=== PATIENT | female | born 1945 | race Caucasian/White ===

== ENCOUNTER 2017-08-11 12:26 | Outpatient (CLI) | payer MEDICARE, OTHER, SELFPAY ==
[2017-08-11] VITALS (10 sets, daily range): BP systolic 105–147; BP diastolic 49–73; PULSE 51–60; RESP 18; TEMP 36.1; O2SAT 99–100
--- NOTE | 2017-08-11 12:29 | DI.RAD.S_ITS ---
PROCEDURE: PAIN L/S TRANSFORAMINAL INJECT INDICATIONS: L4/5 Radiculopathy FINDINGS: Fluoroscopic spot filming was performed to verify placement of spinal needles at the L4-5 level(s), as labeled on the films. Appropriate location(s) of the needle tip(s) was confirmed by injection of iodinated contrast. IMPRESSION: Intraoperative documentation of needle injection at the L4-5 level Dictated by: Marshall Mayo M.D. on 08/11/2017 at 14:57 Approved by: Marshall Mayo M.D. on 08/11/2017 at 14:57
--- NOTE | 2017-08-11 13:07 | P.PCN_ITS ---
Procedures Date/Time Date of procedure: 08/11/17 Time of procedure: 13:05 General Procedure description: PREOP DIAGNOSIS 1. FORMAINAL STENOSIS WITH LE SYMPTOMS POST OP DIAGNOSIS 1. FORMAINAL STENOSIS WITH LE SYMPTOMS PROCEDURES 1. FLUOROSCOPICALLY GUIDED CONTRAST CONTROLLED TRANSFORAMINAL EPIDURAL STEROID INJECTION - RIGHT L4/5 TFESI PHYSICIAN: Tyler Briones DO INDICATIONS: Shira is referred by Dr. Bahena for treatment of Foraminal Stenosis with Right LE Symptoms FINDINGS Foraminal Nerve Root Compression secondary to disc disease and facet hypertrophy DESCRIPTION OF PROCEDURE: Following denial of allergy and review of potential side effects and complications, including, but not necessarily limited to, infection, allergic reaction, local tissue breakdown, stroke, temporary or permanent nerve injury, paralysis, and possible , the patient indicated that the patient understood and agreed to proceed. An informed consent document was signed by the patient, witnessed by a nurse, and placed in the patient's chart. Additionally, other treatment options including medications, modalities, and physical therapy were reviewed with the patient. Per the patient request, IV conscious sedation was administered via 3mg of Versed to patient comfort. The patient's vital signs were monitored throughout the procedure by both the nurse and the physician without significant fluctuation. The patient remained conversant throughout the procedure. In the prone position following sterile prep and drape of the lumbar region, the Right L4/5 posterior neuroforamen was identified fluoroscopically. The skin was anesthetized via a 25-gauge 1.5-inch needle with 1% lidocaine solution. At this point, a 25-gauge 3.5-inch spinal needle was atraumatically introduced and advanced under fluoroscopic guidance through the posterior Right L4/5 neuroforamen to approximately the anterior aspect of the canal. Depth was confirmed on lateral view. Following negative aspiration, injection of approximately 1.5 cc of Isovue 200 under live fluoroscopy in the AP view confirmed excellent flow along the nerve root, into the epidural space without vascular or intrathecal uptake observed Radiological data, including multiple fluoroscopic views of the lumbosacral spine, reveal a spinal needle at the Left L4/5 posterior neuroforamen. Subsequent views show flow of contrast material flowing superiorly and inferiorly along the nerve root confirming epidural flow. Subsequently, a test dose of 1.5 cc of 1% lidocaine solution was administered and patient was observed for two minutes for signs or symptoms of complications , including abdominal pain, shortness of breath, bilateral upper or lower extremity weakness, nausea and vomiting, prior to steroid injection. At this point, a total of 3 cc or 20 mg of dexamethasone and 80mg Depo Medrol was injected without incident. The patient was then transferred to the recovery area where they were observed for an appropriate time after the injection. The patient reported a VAS score of 7 prior to the procedure and a post-procedure VAS of 0. Total Fluoroscopy Time: 20.9 seconds Total Conscious Sedation Time: 24min POST OP INSTRUCTIONS The patient was provided a Pain Log to continue to record their response to the target-specific procedure prior to follow-up visit with their referring physician. Additionally, specific post-injection care instructions and a contact number to our office were provided if concerns arise regarding possible complications associated with the procedure are suspected. Tyler Briones DO Complications: none
[2017-08-11] MEDS: MIDAZOLAM 5 MG/5 ML VIAL IV (13:08)
[2017-08-11] MEDS: BUPIVACAINE 0.25% (PF) 30 ML VIAL INJ (13:17)
[2017-08-11] MEDS: IOPAMIDOL 15 ML VIAL 3 ML INJ (13:17)
[2017-08-11] MEDS: methylPREDNISolone acetate 80 MG/ML VIAL INJ (13:17)
[2017-08-11] MEDS: DEXAMETHASONE 10 MG/ML VIAL 20 MG INJ (13:17)
== END 2017-08-11 13:57 | disposition home or self-care (01) ==
LOC: RAD 12:28
PROVIDERS: PCP Family Medicine; Referring Provider Family Medicine; Visit Provider Physical Medicine & Rehabilitation
DX: M54.16 Radiculopathy, lumbar region (principal); M99.73 Connective tissue and disc stenosis of intervertebral foramina of lumbar region
CPT/HCPCS: 64483; 99152; J1040; J1100; J2250

== ENCOUNTER 2017-08-31 07:26 | Outpatient (CLI) | payer MEDICARE, OTHER, SELFPAY ==
[2017-08-31] VITALS (7 sets, daily range): BP systolic 104–166; BP diastolic 45–77; PULSE 46–54; RESP 11–18; TEMP 36.1; O2SAT 100
--- NOTE | 2017-08-31 07:27 | DI.RAD.S_ITS ---
PROCEDURE: PAIN L/SI FACET INJ/BLK 1STL INDICATIONS: facet arthropathy with spondylosis FINDINGS: Fluoroscopic spot filming was performed to verify placement of spinal needles at the right L4-5 facet region, as labeled on the films. Appropriate location(s) of the needle tip(s) was confirmed by injection of iodinated contrast. IMPRESSION: Right L4-5 facet needle localization, presumably for steroid injection. Dictated by: Kyle Engel M.D. on 08/31/2017 at 9:33 Approved by: Kyle Engel M.D. on 08/31/2017 at 9:34
--- NOTE | 2017-08-31 08:09 | P.PCN_ITS ---
Procedures Date/Time Date of procedure: 08/31/17 Time of procedure: 08:44 General Procedure description: PREOP DIAGNOSIS 1. FACET ARTHROPATHY, 2. AXIAL LBP, 3. MULTILEVEL DDD, POST OP DIAGNOSIS 1. FACET ARTHROPATHY, 2. AXIAL LBP, 3. MULTILEVEL DDD, PROCEDURES 1. FLUORSCOPICALLY GUIDED CONTRAST CONTROLLED FACET JOINT INJECTIONS RIGHT L4/5 , L5/S1 PHYSICIAN: DO ELHAM Smith Shira is referred by Dr. Bahena for treatment of Axial LBP FINDINGS Multilevel Facet Arthropathy with Clinically significant axial LBP DESCRIPTION OF PROCEDURE Fluoroscopically guided, contrast-controlled right L4/5, L5/S1 facet joint injections. Following denial of allergy and review of potential side effects and complications, including, but not necessarily limited to, infection, allergic reaction, local tissue breakdown, stroke, temporary or permanent nerve injury, paralysis, and possible , the patient indicated that the patient understood and agreed to proceed. An informed consent document was signed by the patient, witnessed by a nurse, and placed in the patient's chart. Additionally, other treatment options including medications, modalities, and physical therapy were reviewed with the patient. Per the patient request, IV conscious sedation was administered via 2mg of Versed to patient comfort. The patient's vital signs were monitored throughout the procedure by both the nurse and the physician without significant fluctuation. The patient remained conversant throughout the procedure. In the prone position, following sterile prep and drape of the lumbar region, the posterior aspect of the right L4/5, L5/S1 facet joints were identified fluoroscopically. The skin was anesthetized via a 25-gauge 1.5-inch needle with 1% lidocaine solution into the corresponding facet joints. At this point, a 22-gauge 3.5-inch spinal needle was atraumatically introduced and advanced under fluoroscopic guidance into the corresponding facet joints. Following negative aspiration, injections of approximately 0.2-cc of Isovue 200 confirmed interarticular placement without vascular uptake. Radiological data, including multiple fluoroscopic views of the lumbosacral spine, reveal a spinal needle at the right L4/5, L5/S1 facet joints. Subsequent views show flow of contrast material both superiorly and inferiorly within the joint space without vascular or intrathecal uptake. At this point, a total of 0.5 cc including a mixture of 0.25 cc Marcaine and 0.25 cc betamethasone was injected without complication into each of the corresponding facet joints. The patient was then transferred to the recovery area where they were observed for an appropriate period of time after the injection. The patient reported a VAS score of 7 prior to the procedure and a post-procedure VAS of 0. Total Fluoroscopy Time: 12.7 seconds Total Conscious Sedation Time: 24min POST OP INSTRUCTIONS The patient was provided a Pain Log to continue to record their response to the target-specific procedure prior to follow-up visit with their referring physician. Additionally, specific post-injection care instructions and a contact number to our office were provided if concerns arise regarding possible complications associated with the procedure are suspected Complications: none
[2017-08-31] MEDS: BETAMETHASONE 30 MG/5 ML MDV 12 MG INJ (08:25)
[2017-08-31] MEDS: LIDOCAINE 1% 20 ML INJ 10 ML INJ (08:25)
[2017-08-31] MEDS: MIDAZOLAM 5 MG/5 ML VIAL IV (08:25)
[2017-08-31] MEDS: IOPAMIDOL 15 ML VIAL 3 ML INJ (08:25)
[2017-08-31] MEDS: BUPIVACAINE 0.5% (PF) 30 ML VIAL INJ (08:25)
== END 2017-08-31 09:07 | disposition home or self-care (01) ==
LOC: RAD 07:27
PROVIDERS: PCP Family Medicine; Visit Provider Physical Medicine & Rehabilitation
DX: M47.816 Spondylosis without myelopathy or radiculopathy, lumbar region (principal); M41.20 Other idiopathic scoliosis, site unspecified; M43.16 Spondylolisthesis, lumbar region
CPT/HCPCS: 64493; 99152; J0702; J2250; J3010

== ENCOUNTER 2018-03-16 10:25 | Outpatient (CLI) | payer MEDICARE, OTHER, SELFPAY ==
[2018-03-16] VITALS (8 sets, daily range): BP systolic 102–147; BP diastolic 41–65; PULSE 45–56; RESP 16–18; TEMP 36.1; O2SAT 99–100
--- NOTE | 2018-03-16 10:27 | DI.RAD.S_ITS ---
PROCEDURE: PAIN L/SI FACET INJ/BLK 1STL INDICATIONS: SPONDYLOSIS FINDINGS: Fluoroscopic spot filming was performed to verify placement of spinal needles at the right L4, L5, and S1 medial branch level(s), as labeled on the films. Appropriate location(s) of the needle tip(s) was confirmed by injection of iodinated contrast. IMPRESSION: Successful needle localization for medial branch block procedures on the right at L4, L5 and S1. Dictated by: Kyle Engel M.D. on 03/16/2018 at 15:18 Approved by: Kyle Engel M.D. on 03/16/2018 at 15:38
--- NOTE | 2018-03-16 10:41 | PM.PROC.1 ---
Procedures Date/Time Date of procedure: 03/16/18 Time of procedure: 10:41 General Procedure description: POST OP DIAGNOSIS 1. FACET ARTHROPATHY PROCEDURES 1. Right L4, L5 and S1 MB BLOCKS PHYSICIAN: DO ELHAM Smith Shira is referred by Dr. Bahena for treatment of Right Axial LBP. DESCRIPTION OF PROCEDURE Fluoroscopically guided, contrast-controlled right L4, L5 and S1 medial branch blocks with 0.5cc of 0.5% Marcaine. Following denial of allergy and review of potential side effects and complications, including, but not necessarily limited to, infection, allergic reaction, local tissue breakdown, nerve injury, paralysis, stroke and possible , the patient indicated that the patient understood and agreed to proceed. An informed consent document was signed by the patient, witnessed by a nurse, and placed in the patient's chart. After review of previous anaesthesic history and IV conscious sedation the patient was deemed safe to proceed with todays procedure with IV conscious sedation as ASA class II designation. Safety time-out was performed to confirm patient ID, procedure to be performed and site of procedure. IV sedation was accomplished with a combination of 3mg was administered by the RN after DO order, titrated to patient comfort during the course of the procedure while the patient remained responsive to all verbal commands In the prone position, following sterile prep and drape of the lumbar region, the right L4, L5 and S1 anatomical location of the medial branch of the dorsal ramus was identified fluoroscopically. Subsequently an anesthetic skin wheal using 1% lidocaine solution was initiated at each of the anatomical spots. Subsequently then a 22-gauge 3.5-inch spinal needle was atraumatically introduced and advanced under fluoroscopic guidance at each of the corresponding sites at the right L4, L5 and S1 MB. After negative aspiration, 0.2 cc of Isovue 200 was injected, confirming placement without vascular or intrathecal uptake. Subsequently then 0.5 cc of 0.5% Marcaine solution was injected at each of the corresponding sites at the right L4, L5 and S1 medial branch locations. The patient tolerated the procedure well without signs or symptoms of complications. The procedure tolerated the procedure well without signs or symptoms of complications prior to transfer to the recovery area continued monitoring without incident. Post-procedure, the patient was monitored initiating provocative activities to measure the amount of relief from block of the facetogenic pain. The patient reported a VAS of 7 prior to the procedure and a post-procedure VAS of 1. It has been a pleasure to assist in the diagnostic and therapeutic care of your patient. Total Fluoroscopy Time: 24.8 seconds Total Conscious Sedation Time: 24min POST OP INSTRUCTIONS The patient was provided with a Pain Log to complete over the next several hours and subsequent days prior to the patient's follow up with the ordering physician. If the patient has combat information center officer relief to the solution applied, then they may be a candidate for medial branch rhizotomy. The patient is aware, was provided, once again, with a Pain Log and will follow up with the referring physician for review and clinical correlation Tyler Briones DO Complications: none
--- NOTE | 2018-03-16 10:44 | P.PCN_ITS ---
Procedures Date/Time Date of procedure: 03/16/18 Time of procedure: 10:41 General Procedure description: POST OP DIAGNOSIS 1. FACET ARTHROPATHY PROCEDURES 1. Right L4, L5 and S1 MB BLOCKS PHYSICIAN: DO ELHAM Smith Shira is referred by Dr. Bahena for treatment of Right Axial LBP. DESCRIPTION OF PROCEDURE Fluoroscopically guided, contrast-controlled right L4, L5 and S1 medial branch blocks with 0.5cc of 0.5% Marcaine. Following denial of allergy and review of potential side effects and complications, including, but not necessarily limited to, infection, allergic reaction, local tissue breakdown, nerve injury, paralysis, stroke and possible , the patient indicated that the patient understood and agreed to proceed. An informed consent document was signed by the patient, witnessed by a nurse, and placed in the patient's chart. After review of previous anaesthesic history and IV conscious sedation the patient was deemed safe to proceed with todays procedure with IV conscious sedation as ASA class II designation. Safety time-out was performed to confirm patient ID, procedure to be performed and site of procedure. IV sedation was accomplished with a combination of 3mg was administered by the RN after DO order , titrated to patient comfort during the course of the procedure while the patient remained responsive to all verbal commands In the prone position, following sterile prep and drape of the lumbar region, the right L4, L5 and S1 anatomical location of the medial branch of the dorsal ramus was identified fluoroscopically. Subsequently an anesthetic skin wheal using 1% lidocaine solution was initiated at each of the anatomical spots. Subsequently then a 22-gauge 3.5-inch spinal needle was atraumatically introduced and advanced under fluoroscopic guidance at each of the corresponding sites at the right L4, L5 and S1 MB. After negative aspiration, 0.2 cc of Isovue 200 was injected, confirming placement without vascular or intrathecal uptake. Subsequently then 0.5 cc of 0.5% Marcaine solution was injected at each of the corresponding sites at the right L4, L5 and S1 medial branch locations. The patient tolerated the procedure well without signs or symptoms of complications. The procedure tolerated the procedure well without signs or symptoms of complications prior to transfer to the recovery area continued monitoring without incident. Post-procedure, the patient was monitored initiating provocative activities to measure the amount of relief from block of the facetogenic pain. The patient reported a VAS of 7 prior to the procedure and a post-procedure VAS of 1. It has been a pleasure to assist in the diagnostic and therapeutic care of your patient. Total Fluoroscopy Time: 24.8 seconds Total Conscious Sedation Time: 24min POST OP INSTRUCTIONS The patient was provided with a Pain Log to complete over the next several hours and subsequent days prior to the patient's follow up with the ordering physician. If the patient has nanny babysitter relief to the solution applied, then they may be a candidate for medial branch rhizotomy. The patient is aware , was provided, once again, with a Pain Log and will follow up with the referring physician for review and clinical correlation Tyler Briones DO Complications: none
[2018-03-16] MEDS: MIDAZOLAM 5 MG/5 ML VIAL IV (11:00)
[2018-03-16] MEDS: BUPIVACAINE 0.5% (PF) VIAL 2 ML INJ (11:07)
[2018-03-16] MEDS: IOPAMIDOL 15 ML VIAL 3 ML INJ (11:07)
[2018-03-16] MEDS: LIDOCAINE 1% 20 ML INJ 10 ML INJ (11:08)
[2018-03-16] MEDS: BETAMETHASONE 30 MG/5 ML MDV 12 MG INJ (11:08)
--- NOTE | 2018-03-16 11:08 | PC.NURSE ---
ASSISTING PT OFF TABLE AND TRANSPORTING TO POST PROC AREA IN STABLE CONDITION
--- NOTE | 2018-03-16 11:51 | PC.NURSE ---
Received pt from post procedure, pt alert and able to move from W/C to Chair with standby assist. REsumed monitoring.
== END 2018-03-16 11:42 ==
LOC: RAD 10:27
PROVIDERS: PCP Family Medicine; Visit Provider Physical Medicine & Rehabilitation
DX: M47.817 Spondylosis without myelopathy or radiculopathy, lumbosacral region (principal); M47.816 Spondylosis without myelopathy or radiculopathy, lumbar region
CPT/HCPCS: 64493; 64494; 99152; J0702; J2250

== ENCOUNTER 2018-07-19 10:52 | Outpatient (CLI) | payer MEDICARE, OTHER, SELFPAY ==
[2018-07-19] VITALS (7 sets, daily range): BP systolic 110–144; BP diastolic 48–70; PULSE 46–64; RESP 16–18; TEMP 36.4; O2SAT 98–100
--- NOTE | 2018-07-19 10:54 | DI.RAD.S_ITS ---
PROCEDURE: PAIN SI JOINT INJECTION INDICATIONS: SACROCOCCGEAL DISORDER FINDINGS: Fluoroscopic spot filming was performed to verify placement of spinal needle at the right sacroiliac joint , as labeled on the films. Appropriate location(s) of the needle tip(s) was confirmed by injection of iodinated contrast. Dictated by: Bill Bowman M.D. on 07/20/2018 at 9:55 Approved by: Bill Bowman M.D. on 07/20/2018 at 9:56
[2018-07-19] MEDS: MIDAZOLAM 5 MG/5 ML VIAL IV (11:55)
--- NOTE | 2018-07-19 12:01 | PM.PROC.1 ---
Procedures Date/Time Date of procedure: 07/19/18 Time of procedure: 12:01 General Procedure description: PREOP Dx: Sacroiliac joint pain/DJD POST OP DX: Sacroiliac Joint Pain/DJD Procedures: Fluoroscopic guided contrast controlled right sacroiliac joint injection Physician: Tyler Briones D.O. Indications: Shira is referred by for treatment of right sacroiliac joint DJD Description of procedure Fluoroscopic guided, contrast controlled right sacroiliac joint injection Following denial of allergies and review of potential side effects and complications, including, but not necessarily limited to, infection, allergic reaction, local tissue breakdown, temporary as well as permanent nerve injury, paralysis, stroke and possible , the patient indicated that they understood and agreed to proceed. An informed consent was signed by the patient, witnessed by a nurse, and placed in the patient's chart. Additionally, other treatment options including modalities, medications, and physical therapy were reviewed with the patient. After review of previous anaesthesic history and IV conscious sedation the patient was deemed safe to proceed with todays procedure with IV conscious sedation as ASA class II designation. Safety time-out was performed to confirm patient ID, procedure to be performed and site of procedure. IV sedation was accomplished with 3mg of Versed was administered by the RN after DO order, titrated to patient comfort during the course of the procedure while the patient remained responsive to all verbal commands In the prone position following sterile prep and drape of the pelvic region, the hyper lucency on in the inferior aspect of the sacroiliac joint was identified fluoroscopically the skin was anesthetized be a 25 gauge 1 eventual with approximately 2 cc of 1% lidocaine solution. At this point, a 22 gauge 3 in spinal needle was atraumatically introduced and advanced under fluoroscopic guidance into the inferior aspect of the right sacroiliac joint. Following negative aspiration, approximately 0.3 cc of Isovue-300 was injected confirming intra-articular placement without vascular uptake. Radiographic data, including multiple fluoroscopic views of the pelvis, reveals a spinal needle in the sacroiliac joint hyper lucent zone. Subsequent view show flow contrast tear superiorly and inferiorly within the joint capsule without vascular intrathecal uptake. At this point a total of 1 cc or 0 8 of 0.5% Marcaine was combined with 1 cc of 6 mg of betamethasone was injected without incident. The procedure tolerated the procedure well without signs or symptoms of complications prior to transfer to the recovery area continued monitoring without incident. The patient was then transferred to the recovery area with a bur observed for an appropriate time after the injection. The patient reverted a vas score of 7 prior to the procedure and postprocedure vas of 1. Total fluoroscopy time: 22.7 sec Total conscious sedation time: 24 min Postop instructions The patient was provided with a pain like to continue to record the patient's response to the target specific procedure prior to the patient's follow-up visit with the referring physician. Additionally, specific post injection care instructions and a contact number to our office were provided if concerns arise regarding the possible complications associated with procedure are suspected. Tyler Briones D.O. Complications: none
--- NOTE | 2018-07-19 12:10 | PC.NURSE ---
pt tolerated procedure well. Able to get off table with standby assist. Transferred pt to pre procedure room via wheelchair for continued monitoring with Dolores INGRAM.
[2018-07-19] MEDS: IOPAMIDOL 15 ML VIAL 3 ML INJ (12:12)
[2018-07-19] MEDS: BETAMETHASONE 30 MG/5 ML MDV 12 MG INJ (12:12)
[2018-07-19] MEDS: BUPIVACAINE 0.5% (PF) VIAL 2 ML INJ (12:12)
== END 2018-07-19 12:31 | disposition home or self-care (01) ==
LOC: RAD 10:53
PROVIDERS: PCP Family Medicine; Visit Provider Physical Medicine & Rehabilitation
DX: M53.3 Sacrococcygeal disorders, not elsewhere classified (principal); M47.818 Spondylosis without myelopathy or radiculopathy, sacral and sacrococcygeal region
CPT/HCPCS: 27096; 99152; J0702; J2250; J3010

== ENCOUNTER → 2019-07-31 11:22 | Outpatient (CLI) | payer MEDICARE, OTHER, SELFPAY ==
--- NOTE | 2019-07-31 11:24 | DI.RAD.S_ITS ---
PROCEDURE: XR LUMBAR SPINE MIN 4V INDICATIONS: LOW BACK PAIN TECHNIQUE: 5 total views of the lumbar spine were acquired, including bilateral oblique views. COMPARISON: None. FINDINGS: Bones: There is moderate levoconvex lumbar scoliosis. Grade 1 anterolisthesis is seen at the L4-L5 level. No displaced fractures are seen. 5 nonrib-bearing, lumbar type vertebral bodies are seen. No suspicious lytic or blastic lesions are seen. There is calcification seen along the L1-L2 and L2-L3 disc levels. There is moderate to severe disc space narrowing seen at L2-L3 and at L5-S1. Moderate disc space narrowing is seen at L4-L5. Lower lumbar spine facet arthropathy is seen. Note is made of osteitis pubis, which is not considered to be frankly abnormal in a woman of this age. Soft tissues: Overlying bowel gas pattern is normal. There is a 5 cm rim calcified focus seen involving the left upper quadrant of the abdomen. Oblique images: No pars defects. IMPRESSION: Moderate levoconvex scoliosis is seen, with multiple levels of degenerative change. The degenerative changes are most prominent inferiorly. 5 cm rim calcified left upper quadrant focus seen, which is likely related to a chronic splenic lesion. Grade 1 L4-L5 anterolisthesis, without associated pars defects identified. Dictated by: Yunior Pratt M.D. on 07/31/2019 at 11:22 Approved by: Yunior Pratt M.D. on 07/31/2019 at 11:25
== END ==
PROVIDERS: PCP Family Medicine; Referring Provider Physical Medicine & Rehabilitation; Visit Provider Physical Medicine & Rehabilitation
DX: M54.5 Low back pain (principal); M43.16 Spondylolisthesis, lumbar region; M41.86 Other forms of scoliosis, lumbar region; M47.816 Spondylosis without myelopathy or radiculopathy, lumbar region; M48.062 Spinal stenosis, lumbar region with neurogenic claudication; M53.3 Sacrococcygeal disorders, not elsewhere classified; M70.61 Trochanteric bursitis, right hip
CPT/HCPCS: 72110; 99213

== ENCOUNTER → 2019-08-09 10:59 | Outpatient (CLI) | payer MEDICARE, OTHER, SELFPAY ==
--- NOTE | 2019-08-09 11:00 | DI.MRI.S_ITS ---
PROCEDURE: MR LUMBAR SPINE WO CON INDICATIONS: LBP with Right LE TECHNIQUE: Noncontrast sagittal T1 spin echo and T2 fast echo, coronal T2, sagittal STIR, axial T1 and T2 fast spin echo through the lumbar spine. COMPARISON: [facility], MR, MR LUMBAR SPINE WO CON, 09/21/2016, 16:25. [facility], CR, XR LUMBAR SPINE MIN 4V, 07/31/2019, 11:21. FINDINGS: Image quality: Excellent. Alignment and Curvature: There are 5 lumbar-type vertebral bodies by plain film. Moderate leftward curvature of the mid/upper lumbar spine is present. There is mild, grade 1 retrolisthesis of T12 on L1. Mild grade 1 anterolisthesis of L2 on L3, L3 on L4, and L4 on L5. Bone Marrow: Marrow is of normal overall signal. No acute vertebral body compression fractures. Mild reactive signal within the endplates adjacent to the T10-T11, T11-T12, T12-L1, L1-L2, L2-L3, L3-L4, L4-L5, and L5-S1 intervertebral discs. Spinal Cord: Conus medullaris terminates at the mid L1 level. Visualized cord demonstrates normal signal and size. Paraspinous Soft Tissues: No paravertebral masses. There is an exophytic peripherally calcified cyst involving the superior pole left kidney, as before, currently measuring 50 mm diameter. L1-L2: Moderate disc desiccation. Mild diffuse disc bulge. Mild facet and ligament flavum hypertrophy. Mild epidural lipomatosis. Mild canal stenosis. No foraminal stenosis. No change. L2-L3: Mild disc height loss. Moderate disc desiccation. Mild diffuse disc bulge with superimposed left far lateral broad-based protrusion. Mild facet and ligamentum flavum hypertrophy. Mild epidural lipomatosis. Mild canal stenosis. Mild left foraminal stenosis. No right foraminal stenosis. No change. L3-L4: Moderate disc height loss and desiccation. Mild diffuse disc bulge. Bilateral facet and ligamentum flavum hypertrophy. Severe canal stenosis. Mild bilateral foraminal stenosis. No change. L4-L5: Moderate disc desiccation. Mild diffuse disc bulge. Moderate facet hypertrophy bilaterally. Mild ligamentum flavum hypertrophy. Mild epidural lipomatosis. Moderate canal stenosis. Mild bilateral foraminal stenosis. No change. L5-S1: Moderate disc desiccation. Mild diffuse disc bulge. Mild bilateral facet hypertrophy. Mild canal stenosis. Mild bilateral foraminal stenosis. No change. IMPRESSION: 1. Multilevel degenerative disc and facet disease, as well as ligamentum flavum hypertrophy and epidural lipomatosis. 2. Multilevel canal stenoses, worst at L3-L4, where there is severe canal stenosis. 3. Mild multilevel foraminal stenoses. Dictated by: Silvio Hawthorne M.D. on 08/09/2019 at 13:38 Approved by: Silvio Hawthorne M.D. on 08/09/2019 at 13:49
== END ==
PROVIDERS: PCP Family Medicine; Referring Provider Physical Medicine & Rehabilitation; Visit Provider Physical Medicine & Rehabilitation
DX: M54.5 Low back pain (principal); M51.37 Other intervertebral disc degeneration, lumbosacral region; M51.36 Other intervertebral disc degeneration, lumbar region; M48.061 Spinal stenosis, lumbar region without neurogenic claudication; M48.07 Spinal stenosis, lumbosacral region; M43.16 Spondylolisthesis, lumbar region; M41.20 Other idiopathic scoliosis, site unspecified; E88.2 Lipomatosis, not elsewhere classified
CPT/HCPCS: 72148

== ENCOUNTER → 2019-09-11 10:04 | Outpatient (CLI) | payer MEDICARE, OTHER, SELFPAY ==
[2019-09-12 08:31] LABS: COVID19 Sendout Not Detected (Not Detect)
== END ==
PROVIDERS: PCP Family Medicine; Visit Provider Physician Assistant
DX: Z01.812 Encounter for preprocedural laboratory examination (principal)
CPT/HCPCS: 87635

== ENCOUNTER 2019-09-14 08:41 | Outpatient (CLI) | payer MEDICARE, OTHER, SELFPAY ==
[2019-09-14] VITALS (9 sets, daily range): BP systolic 114–175; BP diastolic 46–82; PULSE 41–55; RESP 14–167; TEMP 36.2; O2SAT 100
--- NOTE | 2019-09-14 08:44 | DI.RAD.S_ITS ---
PROCEDURE: PAIN L/S TRANSFORAMINAL INJECT INDICATIONS: SPONDYLOSIS FINDINGS: Fluoroscopic spot filming was performed to verify placement of spinal needles at the L3-L4 level(s), as labeled on the films. Appropriate location(s) of the needle tip(s) was confirmed by injection of iodinated contrast. Dictated by: Bill Bowman M.D. on 09/14/2019 at 11:54 Approved by: Bill Bowman M.D. on 09/14/2019 at 11:55
--- NOTE | 2019-09-14 09:33 | PC.NURSE ---
admitted to pre procedure room, LS CTA, HRR, VSS.
--- NOTE | 2019-09-14 09:59 | DI.RAD.S_ITS ---
PROCEDURE: PAIN SI JOINT INJECTION INDICATIONS: SPINAL STENOSIS FINDINGS: Fluoroscopic spot filming was performed to verify placement of spinal needles at the right sacroiliac joint , as labeled on the films. Appropriate location(s) of the needle tip(s) was confirmed by injection of iodinated contrast. Dictated by: Bill Bowman M.D. on 09/14/2019 at 11:55 Approved by: Bill Bowman M.D. on 09/14/2019 at 12:43
[2019-09-14] MEDS: MIDAZOLAM 5 MG/5 ML VIAL IV (10:10)
[2019-09-14] MEDS: BUPIVACAINE 0.25% (PF) VIAL 5 ML INJ (10:14)
[2019-09-14] MEDS: fentaNYL 100 MCG/2 ML INJ 50 MCG IV (10:14)
[2019-09-14] MEDS: IOPAMIDOL 15 ML VIAL 3 ML INJ (10:14)
[2019-09-14] MEDS: DEXAMETHASONE 10 MG/ML VIAL 20 MG INJ (10:15)
[2019-09-14] MEDS: BETAMETHASONE 30 MG/5 ML MDV 12 MG INJ (10:15)
--- NOTE | 2019-09-14 10:32 | P.PCN_ITS ---
Procedures Date/Time Date of procedure: 09/14/19 Time of procedure: 10:32 General Procedure description: PROVIDER: Tyler Briones DO Operative Note PREOP DIAGNOSIS 1. FORAMINAL STENOSIS WITH LE SYMPTOMS, POST OP DIAGNOSIS 1. FORAMINAL STENOSIS WITH LE SYMPTOMS, PROCEDURES 1. FLUOROSCOPICALLY GUIDED CONTRAST CONTROLLED TRANSFORAMINAL EPIDURAL STEROID INJECTION - RIGHT L3/4 TFESI SURGEON: Tyler Briones, INDICATIONS Shira is referred by Dr. Bahena for treatment of Foraminal Stenosis with right LE Symptoms FINDINGS Foraminal Nerve Root Compression secondary to disc disease and facet hypertrophy DESCRIPTION OF PROCEDURE Following review of allergy and review of potential side effects and complications, including, but not necessarily limited to, infection, allergic reaction, local tissue breakdown, stroke, temporary or permanent nerve injury, paralysis, and possible , the patient indicated that the patient understood and agreed to proceed. An informed consent document was signed by the patient, witnessed by a nurse, and placed in the patient's chart. Additionally, other treatment options including medications, modalities, and physical therapy were reviewed with the patient. After review of previous anaesthesic history and IV conscious sedation the patient was deemed safe to proceed with todays procedure with IV conscious sedation as ASA class II designation. Safety time-out was performed to confirm patient ID, procedure to be performed and site of procedure. IV sedation was accomplished with a combination of 2mg of Versed and 50mcg of Fentanyl was administered by the RN after DO order, titrated to patient comfort during the course of the procedure while the patient remained responsive to all verbal commands In the prone position following sterile prep and drape of the lumbar region, the right L3/4 posterior neuroforamen was identified fluoroscopically. The skin was anesthetized via a 25-gauge 1.5-inch needle with 1% lidocaine solution. At this point, a 25-gauge 3.5-inch spinal needle was atraumatically introduced and advanced under fluoroscopic guidance through the posterior right L3/4 neuroforamen to approximately the anterior aspect of the canal. Depth was confirmed on lateral view. Following negative aspiration, injection of approximately 1.5 cc of Isovue 200 under live fluoroscopy in the AP view confirmed excellent flow along the nerve root, into the epidural space without vascular or intrathecal uptake observed Radiological data, including multiple fluoroscopic views of the lumbosacral spine, reveal a spinal needle at the right L3/4 posterior neuroforamen. Subsequ ent views show flow of contrast material flowing superiorly and inferiorly along the nerve root confirming epidural flow. Subsequently, a test dose of 1.5 cc of 1% lidocaine solution was administered and patient was observed for two minutes for signs or symptoms of complications, including abdominal pain, shortness of breath, bilateral upper or lower extremity weakness, nausea and vomiting, prior to steroid injection. At this point, a total of 3cc or 20mg of dexamethasone and 6mg of betamethasone was injected without incident. The patient tolerated the procedure well without signs or symptoms of complications prior to transfer to the recovery area continued monitoring without incident. The patient was then transferred to the recovery area where they were observed for an appropriate time after the injection. The patient reported a VAS score of 6 prior to the procedure and a post-procedure VAS of 0. Total Fluoroscopy Time: 9seconds Total Conscious Sedation Time: 24min POST OP INSTRUCTIONS The patient was provided a Pain Log to continue to record their response to the target-specific procedure prior to follow-up visit with their referring physician. Additionally, specific post-injection care instructions and a contact number to our office were provided if concerns arise regarding possible complications associated with the procedure are suspected. Tyler Briones, Complications: none
--- NOTE | 2019-09-14 10:33 | PM.PROC.1 ---
Procedures Date/Time Date of procedure: 09/14/19 Time of procedure: 10:33 General Procedure description: PREOP Dx: Sacroiliac joint pain/DJD POST OP DX: Sacroiliac Joint Pain/DJD Procedures: Fluoroscopic guided contrast controlled right sacroiliac joint injection Physician: Tyler Briones D.O. Indications: Shira is referred by for treatment of right sacroiliac joint DJD Description of procedure Fluoroscopic guided, contrast controlled right sacroiliac joint injection Following review of allergies and review of potential side effects and complications, including, but not necessarily limited to, infection, allergic reaction, local tissue breakdown, temporary as well as permanent nerve injury, paralysis, stroke and possible , the patient indicated that they understood and agreed to proceed. An informed consent was signed by the patient, witnessed by a nurse, and placed in the patient's chart. Additionally, other treatment options including modalities, medications, and physical therapy were reviewed with the patient. After review of previous anaesthesic history and IV conscious sedation the patient was deemed safe to proceed with todays procedure with IV conscious sedation as ASA class II designation. Safety time-out was performed to confirm patient ID, procedure to be performed and site of procedure. IV sedation was accomplished with a combination of 2mg of Versed and 50mcg of Fentanyl was administered by the RN after DO order, titrated to patient comfort during the course of the procedure while the patient remained responsive to all verbal commands In the prone position following sterile prep and drape of the pelvic region, the hyper lucency on in the inferior aspect of the sacroiliac joint was identified fluoroscopically the skin was anesthetized be a 25 gauge 1 eventual with approximately 2 cc of 1% lidocaine solution. At this point, a 22 gauge 3 in spinal needle was atraumatically introduced and advanced under fluoroscopic guidance into the inferior aspect of the right sacroiliac joint. Following negative aspiration, approximately 0.3 cc of Isovue-300 was injected confirming intra-articular placement without vascular uptake. Radiographic data, including multiple fluoroscopic views of the pelvis, reveals a spinal needle in the sacroiliac joint hyper lucent zone. Subsequent view show flow contrast tear superiorly and inferiorly within the joint capsule without vascular intrathecal uptake. At this point a total of 1cc or of 0.5% Marcaine was combined with 1cc of 6 mg of betamethasone was injected without incident. The procedure tolerated the procedure well without signs or symptoms of complications prior to transfer to the recovery area continued monitoring without incident. The patient was then transferred to the recovery area with a bur observed for an appropriate time after the injection. The patient reverted a vas score of 7 prior to the procedure and postprocedure vas of 1. Total fluoroscopy time: 7 sec Total conscious sedation time: 24 min Postop instructions The patient was provided with a pain like to continue to record the patient's response to the target specific procedure prior to the patient's follow-up visit with the referring physician. Additionally, specific post injection care instructions and a contact number to our office were provided if concerns arise regarding the possible complications associated with procedure are suspected. Tyler Briones D.O. Complications: none
--- NOTE | 2019-09-14 11:23 | PC.NURSE ---
pt returned to pre proc room via wc, stable transfer from wc to chair with minimal assistance, monitoring resumed by this rn
== END 2019-09-14 11:13 | disposition home or self-care (01) ==
LOC: RAD 08:42
PROVIDERS: PCP Family Medicine; Referring Provider Physical Medicine & Rehabilitation; Visit Provider Physical Medicine & Rehabilitation
DX: M48.061 Spinal stenosis, lumbar region without neurogenic claudication (principal); M51.16 Intervertebral disc disorders with radiculopathy, lumbar region; M53.3 Sacrococcygeal disorders, not elsewhere classified; M47.898 Other spondylosis, sacral and sacrococcygeal region
CPT/HCPCS: 27096; 64483; 99152; 99153; J0702; J1100; J2250; J3010

== ENCOUNTER → 2019-09-21 10:48 | Outpatient (CLI) | payer MEDICARE, OTHER, SELFPAY ==
--- NOTE | 2019-09-21 13:26 | DI.US.S_ITS ---
PROCEDURE: US PERIPH VENOUS LOW EXTREM LT INDICATIONS: LEFT CALF NUMBNESS TECHNIQUE: Real-time imaging, as well as color and pulse Doppler interrogation, were performed of the lower extremity deep veins from the inguinal ligament to the popliteal fossa. COMPARISON: None. FINDINGS: The common femoral, femoral and popliteal veins are normally compressible, and free of intraluminal thrombus. Color and pulse Doppler demonstrate normal phasic intraluminal flow. There is normal augmentation response to distal compression maneuver. IMPRESSION: No evidence of DVT in visualized left lower extremity veins. Dictated by: Jim Sofia M.D. on 09/21/2019 at 13:31 Approved by: Jim Sofia M.D. on 09/21/2019 at 13:32
== END ==
PROVIDERS: PCP Family Medicine; Referring Provider Physical Medicine & Rehabilitation; Visit Provider Physical Medicine & Rehabilitation
DX: R60.0 Localized edema (principal); R20.0 Anesthesia of skin
CPT/HCPCS: 93971

== ENCOUNTER → 2020-09-09 10:52 | Outpatient (CLI) | payer MEDICARE, OTHER, SELFPAY ==
[2020-09-09 15:46] LABS: COVID19 -Nasal RAPID Negative (Negative)
== END ==
PROVIDERS: PCP Family Medicine; Referring Provider Physical Medicine & Rehabilitation; Visit Provider Physical Medicine & Rehabilitation
DX: Z20.822 Contact with and (suspected) exposure to COVID-19 (principal)
CPT/HCPCS: 87635; C9803

== ENCOUNTER 2020-09-10 09:53 | Outpatient (CLI) | payer MEDICARE, OTHER, SELFPAY ==
[2020-09-10] VITALS (8 sets, daily range): BP systolic 92–160; BP diastolic 56–71; PULSE 48–55; RESP 12–20; TEMP 36.6; O2SAT 96–100
--- NOTE | 2020-09-10 11:23 | DI.RAD.S_ITS ---
PROCEDURE: PAIN SI JOINT INJECTION INDICATIONS: Right SI joint djd COMPARISON: [facility], XA, PAIN SI JOINT INJECTION, 09/14/2019, 9:23. FINDINGS: Fluoroscopic spot filming was performed to verify placement of spinal needles at the right SI joint level(s), as labeled on the films. Appropriate location(s) of the needle tip(s) was confirmed by injection of iodinated contrast. IMPRESSION: Fluoroscopic spo
[2020-09-10] MEDS: MIDAZOLAM 5 MG/5 ML VIAL IV (11:25)
[2020-09-10] MEDS: fentaNYL 100 MCG/2 ML INJ 50 MCG IV (11:25)
[2020-09-10] MEDS: BUPIVACAINE 0.5% (PF) VIAL 2 ML INJ (11:37)
[2020-09-10] MEDS: IOPAMIDOL 15 ML VIAL 3 ML INJ (11:37)
[2020-09-10] MEDS: BETAMETHASONE 30 MG/5 ML MDV 12 MG INJ (11:38)
--- NOTE | 2020-09-10 11:39 | PM.PROC.IR.1 ---
Date/Time/Diagnoses Date of procedure: 09/10/20 Time of procedure: 11:39 Pre-procedure diagnosis: Sacroiliac joint pain/DJD Post-procedure diagnosis: same Procedure Notes Procedure: Fluoroscopically guided contrast controlled right sacroiliac joint injection Indications: Shira is referred by Dr. Hackett for treatment of right sacroiliac joint DJD Physician: Tyler Briones Total Fluoroscopy time (seconds): 9 Total sedation minutes: 11 Complications: none Procedure in detail & Post-procedure care: DESCRIPTION OF PROCEDURE Fluoroscopically guided, contrast controlled right sacroiliac joint injection Following review of allergies and review of potential side effects and complications, including, but not necessarily limited to, infection, allergic reaction, local tissue breakdown, temporary as well as permanent nerve injury, paralysis, stroke and possible , the patient indicated that they understood and agreed to proceed. An informed consent was signed by the patient, witnessed by a nurse, and placed in the patient's chart. Additionally, other treatment options including modalities, medications, and physical therapy were reviewed with the patient. After review of previous anaesthesic history and IV conscious sedation the patient was deemed safe to proceed with today?s procedure with IV conscious sedation as ASA class II designation. Safety time-out was performed to confirm patient ID, procedure to be performed and site of procedure. IV sedation was accomplished with a combination of 2mg of Versed and 50mcg of Fentanyl was administered by the RN after DO order, titrated to patient comfort during the course of the procedure while the patient remained responsive to all verbal commands In the prone position following sterile prep and drape of the pelvic region, the hyper lucency on in the inferior aspect of the sacroiliac joint was identified fluoroscopically the skin was anesthetized be a 25 gauge 1 eventual with approximately 2 cc of 1% lidocaine solution. At this point, a 22 gauge 3 in spinal needle was atraumatically introduced and advanced under fluoroscopic guidance into the inferior aspect of the right sacroiliac joint. Following negative aspiration, approximately 0.3cc of Isovue-300 was injected confirming intra-articular placement without vascular uptake. Radiographic data, including multiple fluoroscopic views of the pelvis, reveals a spinal needle in the sacroiliac joint hyper lucent zone. Subsequent view show flow contrast tear superiorly and inferiorly within the joint capsule without vascular intrathecal uptake. At this point a total of 1 of 0.5% Marcaine was combined with 1cc of 6 mg of betamethasone was injected without incident. The procedure tolerated the procedure well without signs or symptoms of complications prior to transfer to the recovery area continued monitoring without incident. The patient was then transferred to the recovery area with a bur observed for an appropriate time after the injection. The patient reverted a vas score of 7 prior to the procedure and post-procedure vas of 1. POSTOP INSTRUCTIONS The patient was provided with a pain like to continue to record the patient's response to the target specific procedure prior to the patient's follow-up visit with the referring physician. Additionally, specific post injection care instructions and a contact number to our office were provided if concerns arise regarding the possible complications associated with procedure are suspected.
== END 2020-09-10 12:05 | disposition home or self-care (01) ==
LOC: RAD 09:55
PROVIDERS: PCP Family Medicine; Referring Provider Physical Medicine & Rehabilitation; Visit Provider Physical Medicine & Rehabilitation
DX: M53.3 Sacrococcygeal disorders, not elsewhere classified (principal); M46.1 Sacroiliitis, not elsewhere classified
CPT/HCPCS: 27096; 99152; J0702; J2250; J3010

== ENCOUNTER → 2021-01-06 08:34 | Outpatient (CLI) | payer MEDICARE, OTHER, SELFPAY ==
[2021-01-06 16:35] LABS: COVID19 -Nasal RAPID Negative (Negative)
== END ==
PROVIDERS: PCP Family Medicine; Referring Provider Physical Medicine & Rehabilitation; Visit Provider Physical Medicine & Rehabilitation
DX: Z20.822 Contact with and (suspected) exposure to COVID-19 (principal)
CPT/HCPCS: 87635; C9803

== ENCOUNTER 2021-01-07 09:17 | Outpatient (CLI) | payer MEDICARE, OTHER, SELFPAY ==
[2021-01-07] VITALS (9 sets, daily range): BP systolic 97–143; BP diastolic 49–66; PULSE 48–53; RESP 7–20; TEMP 36.2; O2SAT 97–100
--- NOTE | 2021-01-07 09:20 | DI.RAD.S_ITS ---
PROCEDURE: XR KNEE RT 3V INDICATIONS: right knee djd TECHNIQUE: 3 views of the knee were acquired. COMPARISON: None. FINDINGS: Bones: No fractures or dislocations. No suspicious bony lesions. Mild lateral medial compartment osteoarthritis. Moderate patellofemoral compartment osteoarthritis. Soft tissues: No joint effusion. No suspicious soft tissue calcifications. IMPRESSION: Right knee tricompartmental osteoarthritis. Dictated by: Bea Martinez MD, PhD on 01/07/2021 at 9:35 Approved by: Bea Martinez MD, PhD on 01/07/2021 at 9:36
--- NOTE | 2021-01-07 09:20 | DI.RAD.S_ITS ---
PROCEDURE: PAIN L/S FACET INJ/BLK 1ST JORGE COMPARISON: None. INDICATIONS: SPONDYLOSIS FINDINGS: Access needles at the bilateral L3-L4 and L4-L5 facet levels. IMPRESSION: Access needles positioned at the bilateral L3-L4 and L4-L5 facets. Dictated by: Bea Martinez MD, PhD on 01/07/2021 at 13:08 Approved by: Bea Martinez MD, PhD on 01/07/2021 at 13:09
[2021-01-07] MEDS: MIDAZOLAM 5 MG/5 ML VIAL IV (10:15)
[2021-01-07] MEDS: fentaNYL 100 MCG/2 ML INJ 50 MCG IV (10:15)
[2021-01-07] MEDS: IOPAMIDOL 15 ML VIAL 3 ML INJ (10:22)
[2021-01-07] MEDS: LIDOCAINE 1% 20 ML 10 ML INJ (10:22)
[2021-01-07] MEDS: BUPIVACAINE 0.5% (PF) VIAL 5 ML INJ (10:23)
[2021-01-07] MEDS: BETAMETHASONE 30 MG/5 ML MDV 12 MG INJ (10:23)
--- NOTE | 2021-01-07 10:34 | P.PCN_ITS ---
Date/Time/Diagnoses Date of procedure: 01/07/21 Time of procedure: 10:34 Pre-procedure diagnosis: 1. FACET ARTHROPATHY 2. AXIAL LBP 3. MULTILEVEL DDD Post-procedure diagnosis: same Procedure Notes Procedure: 1. FLUORSCOPICALLY GUIDED CONTRAST CONTROLLED FACET JOINT INJECTIONS BILATERAL L3/4, L4/5 Indications: Shira is referred by Dr. Hackett for treatment of Axial LBP Physician: Tyler Briones Total Fluoroscopy time (seconds): 12 Total sedation minutes: 11 Complications: none Procedure in detail & Post-procedure care: FINDINGS Multilevel Facet Arthropathy with Clinically significant axial LBP DESCRIPTION OF PROCEDURE Fluoroscopically guided, contrast-controlled bilateral L3/4, L4/5 facet joint injections. Following review of allergy and review of potential side effects and complications, including, but not necessarily limited to, infection, allergic reaction, local tissue breakdown, stroke, temporary or permanent nerve injury, paralysis, and possible , the patient indicated that the patient understood and agreed to proceed. An informed consent document was signed by the patient, witnessed by a nurse, and placed in the patient's chart. Additionally, other treatment options including medications, modalities, and physical therapy were reviewed with the patient. After review of previous anaesthesic history and IV conscious sedation the patient was deemed safe to proceed with today's procedure with IV conscious sedation as ASA class II designation. Safety time-out was performed to confirm patient ID, procedure to be performed and site of procedure. IV sedation was accomplished with a combination of 2mg of Versed and 50mcg of Fentanyl was administered by the RN after DO order, titrated to patient comfort during the course of the procedure while the patient remained responsive to all verbal commands. In the prone position, following sterile prep and drape of the lumbar region, the posterior aspect of the L3/4, L4/5 facet joints were identified fluoroscopically. The skin was anesthetized via a 25-gauge 1.5-inch needle with 1% lidocaine solution into the corresponding facet joints. At this point, a 22- gauge 3.5-inch spinal needle was atraumatically introduced and advanced under fluoroscopic guidance into the corresponding facet joints. Following negative aspiration, injections of approximately 0.2cc of Isovue 200 confirmed interarticular placement without vascular uptake. The identical procedure was then performed at the L3/4, L4/5 facet joints on the left. Radiological data, including multiple fluoroscopic views of the lumbosacral spine, reveal a spinal needle at the L3/4, L4/5 facet joints bilaterally. Subsequent views show flow of contrast material both superiorly and inferiorly within the joint space without vascular or intrathecal uptake. At this point, a total of 0.5cc including a mixture of 0.25cc Marcaine and 0.25cc betamethasone was injected without complication into each of the corresponding facet joints. The patient tolerated the procedure well without signs or symptoms of complications prior to transfer to the recovery area continued monitoring without incident. The patient was then transferred to the recovery area where they were observed for an appropriate period of time after the injection. The patient reported a VAS score of 7 prior to the procedure and a post-procedure VAS of 0. POST OP INSTRUCTIONS The patient was provided a Pain Log to continue to record their response to the target-specific procedure prior to follow-up visit with their referring phys ician. Additionally, specific post-injection care instructions and a contact number to our office were provided if concerns arise regarding possible complications associated with the procedure are suspected.
== END 2021-01-07 10:50 | disposition home or self-care (01) ==
PROVIDERS: PCP Family Medicine; Referring Provider Physical Medicine & Rehabilitation; Visit Provider Physical Medicine & Rehabilitation
DX: M47.816 Spondylosis without myelopathy or radiculopathy, lumbar region (principal); M51.36 Other intervertebral disc degeneration, lumbar region; M54.59 Other low back pain; M17.11 Unilateral primary osteoarthritis, right knee
CPT/HCPCS: 64493; 64494; 73562; 99152; J0702; J2250; J3010

== ENCOUNTER → 2021-06-02 13:42 | Outpatient (CLI) | payer MEDICARE, OTHER, SELFPAY ==
[2021-06-02 17:49] LABS: COVID19 -Nasal RAPID Negative (Negative)
== END ==
PROVIDERS: PCP Family Medicine; Visit Provider Physical Medicine & Rehabilitation
DX: Z20.822 Contact with and (suspected) exposure to COVID-19 (principal)
CPT/HCPCS: 87635; C9803

== ENCOUNTER 2021-06-03 12:07 | Outpatient (CLI) | payer MEDICARE, OTHER, SELFPAY ==
[2021-06-03] VITALS (8 sets, daily range): BP systolic 118–156; BP diastolic 59–65; PULSE 49–60; RESP 12–18; TEMP 36.6; O2SAT 98–100
--- NOTE | 2021-06-03 12:11 | DI.RAD.S_ITS ---
PROCEDURE: PAIN L INTERLAMINAR/CAUDAL INJ INDICATIONS: SPONDYLOSIS COMPARISON: [facility], XA, PAIN L/S FACET INJ/BLK 1ST JORGE, 01/07/2021, 10:16. FINDINGS: Fluoroscopic spot filming was performed to verify placement of a spinal needle at the L3-L4 level, as labeled on the films. Appropriate location of the needle tip was confirmed by injection of iodinated contrast. IMPRESSION: Intraprocedural examination within normal limits. Dictated by: Yunior Pratt M.D. on 06/03/2021 at 13:58 Approved by: Yunior Pratt M.D. on 06/03/2021 at 13:59
[2021-06-03] MEDS: IOPAMIDOL 15 ML VIAL 3 ML INJ (13:55)
[2021-06-03] MEDS: MIDAZOLAM 5 MG/5 ML VIAL IV (13:55)
[2021-06-03] MEDS: DEXAMETHASONE 10 MG/ML VIAL 20 MG INJ (13:56)
[2021-06-03] MEDS: BETAMETHASONE 30 MG/5 ML MDV 6 MG INJ (13:56)
[2021-06-03] MEDS: BUPIVACAINE 0.25% (PF) VIAL 2 ML INJ (13:56)
--- NOTE | 2021-06-03 14:07 | P.PCN_ITS ---
Date/Time/Diagnoses Date of procedure: 06/03/21 Time of procedure: 14:07 Pre-procedure diagnosis: 1. HNP WITH RADICULAR FEATURES, 2. MULTILEVEL CENTRAL STENOSIS, Post-procedure diagnosis: same Procedure Notes Procedure: 1. FLUOROSCOPICALLY GUIDED CONTRAST CONTROLLED INTERLAMINAR EPIDURAL STEROID INJECTION - L3/4 Indications: Shira is referred by Dr. Hackett for treatment of Bilateral Foraminal Stenosis L>R LE symptoms. Physician: Tyler Briones Total Fluoroscopy time (seconds): 10 Total sedation minutes: 12 Complications: none Procedure in detail & Post-procedure care: FINDINGS Multilevel Central Spinal Stenosis with Nerve Root Compression DESCRIPTION OF PROCEDURE Fluoroscopically guided, contrast-controlled L3/4 translaminar epidural steroid injection. Following review of allergy and review of potential side effects and complications, including, but not necessarily limited to, infection, allergic reaction, local tissue breakdown, temporary as well as permanent nerve injury, paralysis, stroke and possible , the patient indicated that the patient understood and agreed to proceed. An informed consent document was signed by the patient, witnessed by a nurse, and placed in the patient's chart. Additionally, other treatment options including modalities, medications, and physical therapy were reviewed with the patient. After review of previous anaesthesic history and IV conscious sedation the patient was deemed safe to proceed with today?s procedure with IV conscious sedation as ASA class II designation. Safety time-out was performed to confirm p atient ID, procedure to be performed and site of procedure. IV sedation was accomplished with a combination of 2mg of Versed was administered by the RN after DO order, titrated to patient comfort during the course of the procedure while the patient remained responsive to all verbal commands. In the prone position, following sterile prep and drape of the lumbar region, the L3/4 translaminar space was identified fluoroscopically. The skin was anesthetized via a 25-gauge, 1.5-inch needle with 1% lidocaine solution. At this point, a 22-gauge short bevel spinal needle was atraumatically introduced and advanced under fluoroscopic guidance into the region of the L3/4 translaminar space. Depth was confirmed on lateral view. Radiological data, including multiple fluoroscopic views of the lumbar spine, reveal a spinal needle at the L3/4 translaminar space. Lateral views then show placement of the needle in the epidural space. Subsequent views show contrast material flowing superiorly and inferiorly in the epidural space. No vascular or intrathecal uptake is observed. At this point, using loss of resistance technique with saline and air, the epidural space was entered. This was confirmed following negative aspiration with injection of approximately 1.5 cc of Isovue 200, showing excellent epidural flow without vascular or intrathecal uptake. At this point, 1cc of 1% lidocaine solution combined with 3cc or 20mg of dexamethasone and 6mg of betamethasone was injected without incident. The patient tolerated the procedure well without signs or symptoms of complications prior to transfer to the recovery area continued monitoring without incident. The patient was then transferred to the recovery area where they were observed for an appropriate period of time after the injection. The patient reported a VAS score of 6 prior to the procedure and a post- procedure VAS of 0. POST OP INSTRUCTIONS The patient was provided a Pain Log to continue to record their response to the target-specific procedure prior to follow-up visit with their referring physician. Additionally, specific post-injection care instructions and a contact number to our office were provided if concerns arise regarding possible complications associated with the procedure are suspected.
== END 2021-06-03 14:29 | disposition home or self-care (01) ==
LOC: RAD 12:10
PROVIDERS: PCP Family Medicine; Referring Provider Physical Medicine & Rehabilitation; Visit Provider Physical Medicine & Rehabilitation
DX: M51.16 Intervertebral disc disorders with radiculopathy, lumbar region (principal); M48.061 Spinal stenosis, lumbar region without neurogenic claudication
CPT/HCPCS: 62323; 99152; J0702; J1100; J2250; J3010

== ENCOUNTER → 2021-11-10 13:01 | Outpatient (CLI) | payer MEDICARE, OTHER, SELFPAY ==
[2021-11-10 14:12] LABS: COVID19 -Nasal RAPID Negative (Negative)
== END ==
PROVIDERS: PCP Family Medicine; Visit Provider Physical Medicine & Rehabilitation
DX: Z20.822 Contact with and (suspected) exposure to COVID-19 (principal)
CPT/HCPCS: 87635; C9803

== ENCOUNTER 2021-11-11 08:08 | Outpatient (CLI) | payer MEDICARE, OTHER, SELFPAY ==
[2021-11-11] VITALS (7 sets, daily range): BP systolic 109–172; BP diastolic 55–76; PULSE 47–58; RESP 14–18; TEMP 36.4; O2SAT 98–100
--- NOTE | 2021-11-11 08:10 | DI.RAD.S_ITS ---
PROCEDURE: PAIN L INTERLAMINAR/CAUDAL INJ INDICATIONS: SPONDYLOSIS COMPARISON: [facility], XA, PAIN L INTERLAMINAR/CAUDAL INJ, 06/03/2021, 13:56. FINDINGS: Fluoroscopic spot filming was performed to verify placement of a spinal needle at the L3-L4 level, as labeled on the films. Appropriate location of the needle tip was confirmed by injection of iodinated contrast. IMPRESSION: Intraprocedural examination within normal limits. Dictated by: Yunior Pratt M.D. on 11/11/2021 at 9:09 Approved by: Yunior Pratt M.D. on 11/11/2021 at 9:09
[2021-11-11] MEDS: MIDAZOLAM 2 MG/2 ML VIAL IV (09:10)
--- NOTE | 2021-11-11 09:22 | P.PCN_ITS ---
Date/Time/Diagnoses Date of procedure: 11/11/21 Time of procedure: 09:22 Pre-procedure diagnosis: 1. HNP WITH RADICULAR FEATURES, 2. MULTILEVEL CENTRAL STENOSIS, Post-procedure diagnosis: same Procedure Notes Procedure: 1. FLUOROSCOPICALLY GUIDED CONTRAST CONTROLLED INTERLAMINAR EPIDURAL STEROID INJECTION - L3/4 Indications: Shira is referred by Dr. Hackett for treatment of Bilateral Foraminal Stenosis L>R LE symptoms. Physician: Tyler Briones Total Fluoroscopy time (seconds): 7 Total sedation minutes: 9 Complications: none Procedure in detail & Post-procedure care: FINDINGS Multilevel Central Spinal Stenosis with Nerve Root Compression DESCRIPTION OF PROCEDURE Fluoroscopically guided, contrast-controlled L3/4 translaminar epidural steroid injection. Following review of allergy and review of potential side effects and complications, including, but not necessarily limited to, infection, allergic reaction, local tissue breakdown, temporary as well as permanent nerve injury, paralysis, stroke and possible , the patient indicated that the patient understood and agreed to proceed. An informed consent document was signed by the patient, witnessed by a nurse, and placed in the patient's chart. Additionally, other treatment options including modalities, medications, and physical therapy were reviewed with the patient. After review of previous anaesthesic history and IV conscious sedation the patient was deemed safe to proceed with today?s procedure with IV conscious sedation as ASA class II designation. Safety time-out was performed to confirm patient ID, procedure to be performed and site of procedure. IV sedation was accomplished with a combination of 2mg of Versed was administered by the RN after DO order, titrated to patient comfort during the course of the procedure while the patient remained responsive to all verbal commands. In the prone position, following sterile prep and drape of the lumbar region, the L3/4 translaminar space was identified fluoroscopically. The skin was anesthetized via a 25-gauge, 1.5-inch needle with 1% lidocaine solution. At this point, a 22-gauge short bevel spinal needle was atraumatically introduced and advanced under fluoroscopic guidance into the region of the L3/4 translaminar space. Depth was confirmed on lateral view. Radiological data, including multiple fluoroscopic views of the lumbar spine, reveal a spinal needle at the L3/4 translaminar space. Lateral views then show placement of the needle in the epidural space. Subsequent views show contrast material flowing superiorly and inferiorly in the epidural space. No vascular or intrathecal uptake is observed. At this point, using loss of resistance technique with saline and air, the epidural space was entered. This was confirmed following negative aspiration with injection of approximately 1.5 cc of Isovue 200, showing excellent epidural flow without vascular or intrathecal uptake. At this point, 1cc of 1% lidocaine solution combined with 3cc or 20mg of dexamethasone and 6mg of betamethasone was injected without incident. The patient tolerated the procedure well without signs or symptoms of complications prior to transfer to the recovery area continued monitoring without incident. The patient was then transferred to the recovery area where they were observed for an appropriate period of time after the injection. The patient reported a VAS score of 6 prior to the procedure and a post- procedure VAS of 0. POST OP INSTRUCTIONS The patient was provided a Pain Log to continue to record their response to the target-specific procedure prior to follow-up visit with their referring physician. Additionally, specific post-injection care instructions and a contact number to our office were provided if concerns arise regarding possible complications associated with the procedure are suspected.
[2021-11-11] MEDS: DEXAMETHASONE 10 MG/ML VIAL 20 MG INJ (09:31)
[2021-11-11] MEDS: BETAMETHASONE 30 MG/5 ML MDV 6 MG INJ (09:31)
[2021-11-11] MEDS: BUPIVACAINE 0.25% (PF) VIAL 2 ML INJ (09:31)
[2021-11-11] MEDS: IOPAMIDOL 15 ML VIAL 3 ML INJ (09:31)
--- NOTE | 2021-11-11 09:38 | DI.RAD.S_ITS ---
PROCEDURE: XR HIP W PEL IF DONE JORGE MIN 4V INDICATIONS: hip djd TECHNIQUE: AP pelvis with lateral view(s) of the bilateral hip(s). COMPARISON: None. FINDINGS: Bones: Left worse than right bilateral hip joint osteoarthritic changes are seen with joint space narrowing and subchondral sclerosis. No evidence of avascular necrosis of femoral head. No fractures or dislocations. Pelvic ring appears intact. No suspicious bony lesions. Soft tissues: The visualized bowel gas pattern is normal. No suspicious soft tissue calcifications. IMPRESSION: Left worse than right bilateral hip joint osteoarthritis. No hip fracture or dislocation. No evidence of avascular necrosis. Dictated by: Jim Sofia M.D. on 11/11/2021 at 10:59 Approved by: Jim Sofia M.D. on 11/11/2021 at 10:59
--- NOTE | 2021-11-11 09:38 | DI.RAD.S_ITS ---
PROCEDURE: XR CERVICAL SPINE 4V OR 5V INDICATIONS: cervical spondylosis TECHNIQUE: 5 views of the cervical spine acquired. COMPARISON: None. FINDINGS: Bones: No fractures or dislocations to the T1 level. Degenerative endplate changes, loss of disc height and bilateral facet hypertrophic changes are noted throughout cervical spine more prominent at C4-5 and C5-6 levels. Oblique images demonstrate bilateral bony foraminal stenosis at C4-5 and C5-6 levels and right-sided bony foraminal stenosis at C3-4 level. Soft tissues: No prevertebral soft tissue swelling. IMPRESSION: Degenerative disc disease throughout cervical spine with bilateral bony foraminal stenosis as described above. No fracture or dislocation. Dictated by: Jim Sofia M.D. on 11/11/2021 at 10:59 Approved by: Jim Sofia M.D. on 11/11/2021 at 11:00
--- NOTE | 2021-11-11 09:52 | PC.NURSE ---
Patient getting neck and hip xrays done prior to leaving ordered by Dr Briones.
== END 2021-11-11 09:55 | disposition home or self-care (01) ==
LOC: RAD 08:09
PROVIDERS: PCP Family Medicine; Referring Provider Physical Medicine & Rehabilitation; Visit Provider Physical Medicine & Rehabilitation
DX: M51.16 Intervertebral disc disorders with radiculopathy, lumbar region (principal); M48.061 Spinal stenosis, lumbar region without neurogenic claudication; M47.812 Spondylosis without myelopathy or radiculopathy, cervical region; M50.321 Other cervical disc degeneration at C4-C5 level; M48.02 Spinal stenosis, cervical region; M16.0 Bilateral primary osteoarthritis of hip
CPT/HCPCS: 62323; 72050; 73522; J0702; J1100; J2250; J3490

== ENCOUNTER → 2022-01-26 15:20 | Outpatient (CLI) | payer MEDICARE, OTHER, SELFPAY ==
--- NOTE | 2022-01-26 15:23 | DI.RAD.S_ITS ---
PROCEDURE: XR LUMBAR SPINE MIN 4V INDICATIONS: BACK PAIN TECHNIQUE: 5 views of the lumbar spine were acquired, including bilateral oblique views. COMPARISON: [facility], , XR LUMBAR SPINE MIN 4V, 07/31/2019, 11:21. FINDINGS: Bones: 5 nonrib-bearing vertebrae are present. There is iali-ea-ddlbgkez levoscoliosis of lumbar spine centered at L2 level. Loss of disc height, degenerative endplate changes and bilateral facet arthrosis throughout lumbar spine is seen. 3 mm anterolisthesis of L3 on L4 and 6 mm anterolisthesis of L4 on L5 is again seen unchanged from prior study. No vertebral body compression fractures. No suspicious bony lesions. Soft tissues: Overlying bowel gas pattern is normal. Peripherally calcified oval structure projecting in left upper abdomen is again seen unchanged from 2020 study. Oblique images: No pars defects. IMPRESSION: 1. Stable grade 1 anterolisthesis at L3-4 and L4-5 levels and diee-lj-ipzgnfuw levoscoliosis of thoracolumbar spine centered at L2 level. No acute compression fracture. 2. Degenerative disc disease throughout lumbar spine not significantly changed from prior study. Dictated by: Jim Sofia M.D. on 01/26/2022 at 16:11 Approved by: Jim Soifa M.D. on 01/26/2022 at 16:17
== END ==
PROVIDERS: PCP Family Medicine; Referring Provider Physical Medicine & Rehabilitation; Visit Provider Physical Medicine & Rehabilitation
DX: M47.816 Spondylosis without myelopathy or radiculopathy, lumbar region (principal); M48.061 Spinal stenosis, lumbar region without neurogenic claudication; M51.36 Other intervertebral disc degeneration, lumbar region; M43.16 Spondylolisthesis, lumbar region; M53.3 Sacrococcygeal disorders, not elsewhere classified; M41.9 Scoliosis, unspecified
CPT/HCPCS: 72110; 99214

== ENCOUNTER → 2022-01-30 07:41 | Outpatient (CLI) | payer MEDICARE, OTHER, SELFPAY ==
--- NOTE | 2022-01-30 07:42 | DI.MRI.S_ITS ---
PROCEDURE: MR HIP LT WO CON INDICATIONS: left hip gluteal tear TECHNIQUE: Noncontrast coronal T1 spin echo and STIR through the bony pelvis. Coronal and axial T2 fast spin echo with fat saturation, sagittal T1 spin echo, and oblique axial T2 fast spin echo with fat saturation through the hip. COMPARISON: None. FINDINGS: Image quality: Excellent. Bones and joints: Bilateral hip joint osteoarthritic changes are seen with superior joint space narrowing, subchondral sclerosis and small marginal osteophyte formation. There is no marrow edema. No intraosseous lesions or fractures. No avascular necrosis of the femoral heads. The visualized lower lumbar spine appears normally aligned. Tendons and ligaments: There is moderate grade partial-thickness tear involving distal left gluteus medius tendon at its insertion on the greater trochanter extending to musculotendinous junction with edema also seen in distal gluteus medius muscle. Distal gluteus minimus tendinosis and low-grade partial-thickness tear at its insertion on greater trochanter is also noted extending to musculotendinous junction. The nearby proximal iliotibial band also appears intact. The iliopsoas tendon appears intact, without adjacent bursal fluid collections or evidence for impingement syndrome. The origin of the hamstring tendon is thickened with surrounding soft tissue edema suggestive of tendinosis and low-grade partial-thickness tear. The straight and reflected heads of the rectus femoris muscle origin appear intact, as well as the conjoint tendon. The ligamentum teres appears intact where visualized. Labrum and cartilage: Fraying of superior anterior labrum at 12 to 1 o'clock position is seen with subtle contour irregularity concerning for subtle superior anterior labral tear. Cartilage surface of the femoral head appears of thinned. The alpha angle of the femur is within normal limits at less than 55 degrees. Soft tissues: Visualized muscles demonstrate normal bulk and internal signal. Quadratus femoris muscle demonstrates no internal edema to suggest ischiofemoral impingement. The proximal sciatic neurovascular bundle appears normal adjacent to the hamstring tendons. No free pelvic fluid. Bladder wall thickness is normal. Genitourinary structures and bowel loops appear normal where visualized. IMPRESSION: 1. Moderate grade partial-thickness tear involving distal left gluteus medius muscle and tendon near their insertion on greater trochanter. Mild tendinosis and low-grade partial-thickness tear involving distal left gluteus minimus tendon is also seen extending to musculotendinous junction. No full-thickness muscle or tendon rupture. Tendinosis and low-grade partial-thickness tear also seen involving left hamstring tendon origins at ischial tuberosity. 2. Welp-gc-rcmropue bilateral hip joint osteoarthritis. No fracture or dislocation. No evidence of avascular necrosis of femoral head. 3. Suggestion of subtle superior anterior left hip labral tear at 12 to 1 o'clock position. Dictated by: Jim Sofia M.D. on 01/30/2022 at 9:33 Approved by: Jim Sofia M.D. on 01/30/2022 at 9:36
== END ==
PROVIDERS: PCP Family Medicine; Referring Provider Physical Medicine & Rehabilitation; Visit Provider Physical Medicine & Rehabilitation
DX: S76.012A Strain of muscle, fascia and tendon of left hip, initial encounter (principal); M16.0 Bilateral primary osteoarthritis of hip
CPT/HCPCS: 73721

== ENCOUNTER 2022-06-04 10:06 | Outpatient (CLI) | payer MEDICARE, OTHER, SELFPAY ==
[2022-06-04] VITALS (8 sets, daily range): BP systolic 108–173; BP diastolic 52–94; PULSE 48–56; RESP 12–20; TEMP 36.6; O2SAT 99–100
--- NOTE | 2022-06-04 10:08 | DI.RAD.S_ITS ---
PROCEDURE: PAIN L INTERLAMINAR/CAUDAL INJ INDICATIONS: SPONDYLOSIS COMPARISON: [facility], XA, PAIN L INTERLAMINAR/CAUDAL INJ, 11/11/2021, 9:14. FINDINGS: Fluoroscopic spot filming was performed to verify placement of a spinal needle at the L3-L4 level, as labeled on the films. Appropriate location of the needle tip was confirmed by injection of iodinated contrast. IMPRESSION: Intraprocedural examination within normal limits. Dictated by: Yunior Pratt M.D. on 06/04/2022 at 14:02 Approved by: Yunior Pratt M.D. on 06/04/2022 at 14:03
[2022-06-04] MEDS: MIDAZOLAM 2 MG/2 ML VIAL IV (11:24)
[2022-06-04] MEDS: IOPAMIDOL 15 ML VIAL 3 ML INJ (11:30)
[2022-06-04] MEDS: DEXAMETHASONE 10 MG/ML VIAL 20 MG INJ (11:30)
[2022-06-04] MEDS: BETAMETHASONE 30 MG/5 ML MDV 6 MG INJ (11:30)
[2022-06-04] MEDS: BUPIVACAINE 0.25% (PF) VIAL 5 ML SUBCUT (11:31)
--- NOTE | 2022-06-04 11:40 | P.PCN_ITS ---
Date/Time/Diagnoses Date of procedure: 06/04/22 Time of procedure: 11:41 Pre-procedure diagnosis: 1. HNP WITH RADICULAR FEATURES, 2. MULTILEVEL CENTRAL STENOSIS, Post-procedure diagnosis: same Procedure Notes Procedure: 1. FLUOROSCOPICALLY GUIDED CONTRAST CONTROLLED INTERLAMINAR EPIDURAL STEROID INJECTION - L3/4 Indications: Shira is referred by Dr. Heredia for treatment of Bilateral Foraminal Stenosis L>R LE symptoms. Physician: Tyler Briones Total Fluoroscopy time (seconds): 6 Total sedation minutes: 11 Complications: none Procedure in detail & Post-procedure care: FINDINGS Multilevel Central Spinal Stenosis with Nerve Root Compression DESCRIPTION OF PROCEDURE Fluoroscopically guided, contrast-controlled L3/4 translaminar epidural steroid injection. Following review of allergy and review of potential side effects and complications, including, but not necessarily limited to, infection, allergic reaction, local tissue breakdown, temporary as well as permanent nerve injury, paralysis, stroke and possible , the patient indicated that the patient understood and agreed to proceed. An informed consent document was signed by the patient, witnessed by a nurse, and placed in the patient's chart. Additionally, other treatment options including modalities, medications, and physical therapy were reviewed with the patient. After review of previous anaesthesic history and IV conscious sedation the patient was deemed safe to proceed with today?s procedure with IV conscious sedation as ASA class II designation. Safety time-out was performed to confirm patient ID, procedure to be performed and site of procedure. IV sedation was accomplished with a combination of 2mg of Versed was administered by the RN after DO order, titrated to patient comfort during the course of the procedure while the patient remained responsive to all verbal commands. In the prone position, following sterile prep and drape of the lumbar region, the L3/4 translaminar space was identified fluoroscopically. The skin was anesthetized via a 25-gauge, 1.5-inch needle with 1% lidocaine solution. At this point, a 22-gauge short bevel spinal needle was atraumatically introduced and advanced under fluoroscopic guidance into the region of the L3/4 translaminar space. Depth was confirmed on lateral view. Radiological data, including multiple fluoroscopic views of the lumbar spine, reveal a spinal needle at the L3/4 translaminar space. Lateral views then show placement of the needle in the epidural space. Subsequent views show contrast material flowing superiorly and inferiorly in the epidural space. No vascular or intrathecal uptake is observed. At this point, using loss of resistance technique with saline and air, the epidural space was entered. This was confirmed following negative aspiration with injection of approximately 1.5 cc of Isovue 200, showing excellent epidural flow without vascular or intrathecal uptake. At this point, 1cc of 1% lidocaine solution combined with 3cc or 20mg of dexamethasone and 6mg of betamethasone was injected without incident. The patient tolerated the procedure well without signs or symptoms of complications prior to transfer to the recovery area continued monitoring without incident. The patient was then transferred to the recovery area where they were observed for an appropriate period of time after the injection. The patient reported a VAS score of 6 prior to the procedure and a post- procedure VAS of 0. POST OP INSTRUCTIONS The patient was provided a Pain Log to continue to record their response to the target-specific procedure prior to follow-up visit with their referring physician. Additionally, specific post-injection care instructions and a contact number to our office were provided if concerns arise regarding possible complications associated with the procedure are suspected.
== END 2022-06-04 11:57 | disposition home or self-care (01) ==
PROVIDERS: PCP Family Medicine; Referring Provider Physical Medicine & Rehabilitation; Visit Provider Physical Medicine & Rehabilitation
DX: M51.16 Intervertebral disc disorders with radiculopathy, lumbar region (principal); M48.061 Spinal stenosis, lumbar region without neurogenic claudication
CPT/HCPCS: 62323; 99152; J0702; J1100; J2250; J3490

== ENCOUNTER → 2022-06-11 10:10 | Outpatient (CLI) | payer MEDICARE, OTHER, SELFPAY ==
--- NOTE | 2022-06-11 10:48 | DI.DEXA.S_ITS ---
Bone Density Report Name: LIANNA GILL Age: 76 Sex: Female Ethnicity: White Date of : 1945 Indication: postmenopausal; screening for osteoporosis; Referring Provider: KEIKO VANEGAS Study: Bone densitometry was performed. Exam Date: June 11, 2022 Accession number: [id number] Bone Density: Region BMD T-score Z-score Classification AP Spine(L1-L4) 1.228 1.6 4.3 Normal Femoral Neck (Left) 0.696 -1.4 0.9 Osteopenia Total Hip (Left) 0.909 -0.3 1.7 Normal Femoral Neck (Right) 0.718 -1.2 1.1 Osteopenia Total Hip (Right) 0.957 0.1 2.1 Normal Total Hip Mean 0.933 -0.1 1.9 Normal World Health Organization criteria for BMD impression classify patients as: Normal (T-score at or above -1.0), Osteopenia (T-score between -1.0 and -2.5), or Osteoporosis (T-score at or below -2.5). 10-year Fracture Risk(1): Major Osteoporotic Fracture 12% Hip Fracture 2.6% Reported Risk Factors: [place] (), Neck BMD=0.696, BMI=27.4 (1) FRAX(R) Version 3.08. Fracture probability calculated for an untreated patient. Fracture probability may be lower if the patient has received treatment. Impression: The patient has low bone mass, based on the Left Femoral Neck T-score. The patient has an estimated ten-year risk of hip fracture of 2.6% and an estimated ten-year risk of major fracture of 12%, based on the WHO FRAX algorithm. Discussion: BONE DENSITY IS LOW AT ONE OR MORE SKELETAL SITES. This patient's lowest T-score is low at one or more skeletal sites. It meets the World Health Organization's (WHO) criteria for ?low bone mass? (T-score between -1.0 and -2.5). The patient's 10-year risk of fracture as calculated by FRAX is less than the threshold where pharmacological therapy is recommended by the National Osteoporosis Foundation (NOF). However, all treatment decisions require clinical judgment and consideration of individual patient factors, including patient preferences, comorbidities, previous drug use, risk factors not captured in the FRAX model (e.g., frailty, falls, vitamin D deficiency, increased bone turnover, interval significant decline in bone density) and possible under or overestimation of fracture risk by FRAX. The patient should follow a healthful lifestyle (good nutrition with adequate calcium and vitamin D, and appropriate weight-bearing exercise). Follow-Up: Consider repeating this study in 2 to 3 years to reassess this patient's status, or sooner if there is some new clinical indication. Reported by: JANETTE MARY M.D. on 06/11/2022 11:00:00 AM.
== END ==
PROVIDERS: PCP Family Medicine; Referring Provider Orthopaedic Surgery; Visit Provider Orthopaedic Surgery
DX: M85.852 Other specified disorders of bone density and structure, left thigh (principal); Z78.0 Asymptomatic menopausal state; M48.062 Spinal stenosis, lumbar region with neurogenic claudication; Z13.820 Encounter for screening for osteoporosis; M41.50 Other secondary scoliosis, site unspecified; Z85.3 Personal history of malignant neoplasm of breast; Z92.23 Personal history of estrogen therapy
CPT/HCPCS: 77080

== ENCOUNTER 2022-07-23 06:51 | Outpatient (CLI) | payer MEDICARE, OTHER, SELFPAY ==
[2022-07-23] VITALS (8 sets, daily range): BP systolic 113–174; BP diastolic 55–85; PULSE 48–59; RESP 12–20; TEMP 36.1; O2SAT 97–99
--- NOTE | 2022-07-23 06:52 | DI.RAD.S_ITS ---
PROCEDURE: PAIN L INTERLAMINAR/CAUDAL INJ INDICATIONS: SPONDYLOSIS COMPARISON: [facility], XA, PAIN L INTERLAMINAR/CAUDAL INJ, 06/04/2022, 11:29. FINDINGS: Fluoroscopic spot filming was performed to verify placement of spinal needles at the left L4-5 level(s), as labeled on the films. Appropriate location(s) of the needle tip(s) was confirmed by injection of iodinated contrast. IMPRESSION: Fluoroscopic support for left L4-5 translaminar epidural steroid injection. Please see procedure note for further details. Dictated by: Sanjay Tellez M.D. on 07/23/2022 at 9:40 Approved by: Sanjay Tellez M.D. on 07/23/2022 at 9:41
[2022-07-23] MEDS: MIDAZOLAM 2 MG/2 ML VIAL IV (07:46)
[2022-07-23] MEDS: BUPIVACAINE 0.25% (PF) VIAL 2 ML INJ (07:53)
[2022-07-23] MEDS: methylPREDNISolone acetate 80 MG/ML VIAL INJ (07:54)
[2022-07-23] MEDS: IOPAMIDOL 15 ML VIAL 3 ML INJ (07:54)
[2022-07-23] MEDS: DEXAMETHASONE 10 MG/ML VIAL 20 MG INJ (07:54)
--- NOTE | 2022-07-23 08:01 | P.PCN_ITS ---
Date/Time/Diagnoses Date of procedure: 07/23/22 Time of procedure: 08:02 Pre-procedure diagnosis: 1. HNP WITH RADICULAR FEATURES, 2. MULTILEVEL CENTRAL STENOSIS, Post-procedure diagnosis: same Procedure Notes Procedure: 1. FLUOROSCOPICALLY GUIDED CONTRAST CONTROLLED INTERLAMINAR EPIDURAL STEROID INJECTION -L4/5 Indications: Shira is referred by Dr. Heredia for treatment of Bilateral Foraminal Stenosis R>L LE symptoms. Physician: Tyler Briones Total Fluoroscopy time (seconds): 6 Total sedation minutes: 10 Complications: none Procedure in detail & Post-procedure care: FINDINGS Multilevel Central Spinal Stenosis with Nerve Root Compression DESCRIPTION OF PROCEDURE Fluoroscopically guided, contrast-controlled L4/5 translaminar epidural steroid injection. Following review of allergy and review of potential side effects and complications, including, but not necessarily limited to, infection, allergic reaction, local tissue breakdown, temporary as well as permanent nerve injury, paralysis, stroke and possible , the patient indicated that the patient understood and agreed to proceed. An informed consent document was signed by the patient, witnessed by a nurse, and placed in the patient's chart. Additionally, other treatment options including modalities, medications, and physical therapy were reviewed with the patient. After review of previous anaesthesic history and IV conscious sedation the patient was deemed safe to proceed with today?s procedure with IV conscious sedation as ASA class II designation. Safety time-out was performed to confirm patient ID, procedure to be performed and site of procedure. IV sedation was accomplished with a combination of 2mg of Versed was administered by the RN after DO order, titrated to patient comfort during the course of the procedure while the patient remained responsive to all verbal commands In the prone position, following sterile prep and drape of the lumbar region, the L4/5 translaminar space was identified fluoroscopically. The skin was anesthetized via a 25-gauge, 1.5inch needle with 1% lidocaine solution. At this point, a 22-gauge short bevel spinal needle was atraumatically introduced and a dvanced under fluoroscopic guidance into the region of the L4/5 translaminar space. Depth was confirmed on lateral view. Radiological data, including multiple fluoroscopic views of the lumbar spine, reveal a spinal needle at the L4/5 translaminar space. Lateral views then show placement of the needle in the epidural space. Subsequent views show contrast material flowing superiorly and inferiorly in the epidural space. No vascular or intrathecal uptake is observed. At this point, using loss of resistance technique with saline and air, the epidural space was entered. This was confirmed following negative aspiration with injection of approximately 1.5cc of Isovue 200, showing excellent epidural flow without vascular or intrathecal uptake. At this point, 1cc of 1% lidocaine solution combined with 3cc or 20mg of dexamethasone and 80mg depo-medrol was injected without incident. The patient tolerated the procedure well without signs or symptoms of complications prior to transfer to the recovery area continued monitoring without incident. The patient was then transferred to the recovery area where they were observed for an appropriate period of time after the injection. The patient reported a VAS score of 6 prior to the procedure and a post- procedure VAS of 0. POST OP INSTRUCTIONS The patient was provided a Pain Log to continue to record their response to the target-specific procedure prior to follow-up visit with their referring physician. Additionally, specific post-injection care instructions and a contact number to our office were provided if concerns arise regarding possible complications associated with the procedure are suspected.
--- NOTE | 2022-07-23 08:26 | PC.NURSE ---
LLE with increased pain and weakness upon arrival to post-procedure room. 2PA transfer from WC to recliner. Slight improvement noted currently to stability and weakness. Will continue to monitor mobility status until safe to discharge.
--- NOTE | 2022-07-23 08:45 | PC.NURSE ---
Strength to LLE at baseline. Patient able to take multiple steps without assistance. Steady gait.
== END 2022-07-23 08:49 | disposition home or self-care (01) ==
LOC: RAD 06:52
PROVIDERS: PCP Family Medicine; Referring Provider Physical Medicine & Rehabilitation; Visit Provider Physical Medicine & Rehabilitation
DX: M51.16 Intervertebral disc disorders with radiculopathy, lumbar region (principal); M48.061 Spinal stenosis, lumbar region without neurogenic claudication
CPT/HCPCS: 62323; 99152; J0702; J1040; J1100; J2250; J3490

== ENCOUNTER → 2023-05-20 08:37 | Outpatient (CLI) | payer MEDICARE, OTHER, SELFPAY ==
--- NOTE | 2023-05-20 08:39 | DI.MRI.S_ITS ---
PROCEDURE: MR HIP RT WO CON INDICATIONS: Right hip pain and trendelenburg gait TECHNIQUE: Noncontrast coronal T1 spin echo and STIR through the bony pelvis. Coronal and axial T2 fast spin echo with fat saturation, sagittal T1 spin echo, and oblique axial T2 fast spin echo with fat saturation through the hip. COMPARISON: [facility], CT, CT ANGIO ABDOMEN PELVIS, 01/12/2023, 10:05. [facility], MR, MR HIP LT WO CON, 01/30/2022, 7:53. FINDINGS: Image quality: Diagnostic Bones: Pelvic ring: Intact Femoral head and neck: No fracture. No osteonecrosis. Ligamentum teres: Intact. Lumbar spine and sacrum: Separately dictated. Mild focal edema in the left sacral ala, possibly representing degenerative changes. Tendons: Abductors: Moderate tendinopathy, moderate grade partial tears, and calcific tendinopathy of both the medius and minimus insertional footprint. Adductors and rectus abdominis: Partially seen. There is mild focal edema of the pubic symphysis, and likely [id number] insertional tendinopathy at the rectus femoris and adductor insertions. IT band: Intact. Iliopsoas: Intact. No bursitis. Hamstrings: Mild tendinopathy at the origin Rectus femoris: Intact. Sartorius: Partially seen, intact Joint: Joint space: There is physiologic fluid. Labrum: Not well evaluated on this non-arthrographic study. There is a questionable small fluid cleft at the superior labrum (6/12) Cartilage: Mild cartilage loss and degenerative changes. Soft tissues: Quadratus femoris: No edema or atrophy. Piriformis: Symmetric. Intrapelvic structures: Not well evaluated on this study. Colonic diverticula partially seen. IMPRESSION: Moderate tendinopathy and moderate grade partial tears at the insertion of the abductors, with calcific tendinopathy, involving both the footprints of the medius and minimus tendons. Hlli-lv-[id number] insertional tendinopathy and focal edema of the pubic symphysis also seen, involving the adductors and rectus femoris tendons. Mild hamstrings origin tendinopathy. Mild focal edema at the left sacral ala possibly degenerative changes. Lumbar spine findings are separately dictated Questionable small fluid cleft at the superior labrum may represent an anatomic recess versus tear. Consider MR arthrogram if there is further concern. Mild arthrosis. Dictated by: Mello Armando M.D. on 05/20/2023 at 11:35 Approved by: Mello Armando M.D. on 05/20/2023 at 11:47
--- NOTE | 2023-05-20 08:40 | DI.MRI.S_ITS ---
PROCEDURE: MR LUMBAR SPINE WO CON INDICATIONS: Spinal stenosis, lumbar region Osteoarthritis hip TECHNIQUE: Noncontrast sagittal T1 spin echo and T2 fast echo, sagittal STIR, and T2 fast spin echo through the lumbar spine. In cases with scoliosis, additional coronal T2 fast spin echo may be performed. COMPARISON: [facility], MR, MR LUMBAR SPINE WO CON, 08/09/2019, 11:14. FINDINGS: Image quality: Excellent. Alignment and Curvature: Levo scoliotic curvature of the lumbar spine. Mild grade 1 anterolisthesis of L2 on L3, L3-L4 and L4 on L5. Bone Marrow: Mild multilevel Modic type 1 degenerative endplate changes. Marrow is of normal overall signal. No acute vertebral body compression fractures. Spinal Cord: Conus medullaris terminates at the L1 level. Visualized cord demonstrates normal signal and size. Paraspinous Soft Tissues: No paravertebral masses. Postsurgical changes within the posterior paraspinal soft tissues. Thick-walled left renal cyst is stable compared to prior, seen to be calcified on prior CT scan. T12-L1: Disc desiccation and height loss. Mild posterior disc bulge. Facet arthropathy and thickening of ligamentum flavum. No significant central canal stenosis. Moderate right and no left neural foraminal stenosis. L1-L2: Disc desiccation and height loss. Posterior disc bulge. Facet arthropathy and thickening of ligamentum flavum. Epidural lipomatosis. Mild to moderate central canal stenosis is progressed from prior. Progression of mild right neural foraminal stenosis. No left neural foraminal stenosis is stable. L2-L3: Disc desiccation height loss. Posterior disc bulge. Facet arthropathy and thickening of ligamentum flavum. Laminectomy changes. No significant central canal stenosis is improved compared to prior. Severe right neural foraminal stenosis is progressed compared to prior. Stable mild left neural foraminal stenosis. L3-L4: Postsurgical changes. Disc desiccation height loss. Posterior disc bulge. Facet arthropathy and thickening of ligamentum flavum. Persistent severe spinal canal stenosis. Iajz-em-myrskauq bilateral neural foraminal stenosis is mildly progressed from prior. L4-L5: Disc desiccation and height loss. Anterolisthesis. Facet arthropathy and thickening of ligamentum flavum. Stable moderate central canal stenosis. Stable mild bilateral neural foraminal stenosis. L5-S1: Disc desiccation height loss. Mild central disc protrusion. Facet arthropathy. Stable mild central canal stenosis. Stable mild right neural foraminal stenosis. Mild progression of left neural foraminal stenosis, now mild to moderate. IMPRESSION: 1. Multilevel degenerative changes of the lumbar spine as described above. 2. Persistent severe spinal canal stenosis L3-L4. Moderate central canal stenosis at L4-5. 3. Severe right neural foraminal stenosis at L2-L3 is progressed. Additional levels of neural foraminal stenosis as above, some of which are progressed from prior while others are stable. Dictated by: Armand Aguayo M.D. on 05/20/2023 at 10:57 Approved by: Armand Aguayo M.D. on 05/20/2023 at 11:07
== END ==
LOC: MRI 08:38
PROVIDERS: PCP Family Medicine; Referring Provider Physical Medicine & Rehabilitation; Visit Provider Physical Medicine & Rehabilitation
DX: S76.011A Strain of muscle, fascia and tendon of right hip, initial encounter (principal); M16.11 Unilateral primary osteoarthritis, right hip; M48.062 Spinal stenosis, lumbar region with neurogenic claudication; M48.07 Spinal stenosis, lumbosacral region; M47.816 Spondylosis without myelopathy or radiculopathy, lumbar region; M47.817 Spondylosis without myelopathy or radiculopathy, lumbosacral region; M51.27 Other intervertebral disc displacement, lumbosacral region
CPT/HCPCS: 72148; 73721

== ENCOUNTER → 2023-06-17 11:12 | Outpatient (CLI) | payer MEDICARE, OTHER, SELFPAY | LOC: PHYS 11:13 | PROVIDERS: Family Provider Family Medicine; PCP Family Medicine; Referring Provider Physical Medicine & Rehabilitation; Visit Provider Physical Medicine & Rehabilitation | DX: M16.9 Osteoarthritis of hip, unspecified (principal); M67.959 Unspecified disorder of synovium and tendon, unspecified thigh; M54.17 Radiculopathy, lumbosacral region | CPT/HCPCS: 95886; 95909 ==

== ENCOUNTER 2024-01-06 08:43 | Outpatient (CLI) | payer MEDICARE, OTHER, SELFPAY ==
[2024-01-06] VITALS (11 sets, daily range): BP systolic 102–163; BP diastolic 51–76; PULSE 49–67; RESP 13–17; TEMP 36.4; O2SAT 96–100
--- NOTE | 2024-01-06 09:19 | DI.RAD.S_ITS ---
PROCEDURE: PAIN L/S TRANSFORAMINAL INJECT INDICATIONS: SPONDYLOSIS COMPARISON: [facility], XA, PAIN L/S TRANSFORAMINAL INJECT, 09/14/2019, 9:14. [facility], XA, PAIN L/S TRANSFORAMINAL INJECT, 08/11/2017, 13:07. FINDINGS: Fluoroscopic spot filming was performed to verify placement of spinal needles at the left L4-5 and left L5-S1 level(s), as labeled on the films. Appropriate location(s) of the needle tip(s) was confirmed by injection of iodinated contrast. IMPRESSION: Successful 2 needle tip positions as discussed above, left-sided approach. Dictated by: Kyle Engel M.D. on 01/06/2024 at 12:08 Approved by: Kyle Engel M.D. on 01/06/2024 at 12:09
[2024-01-06] MEDS: MIDAZOLAM 2 MG/2 ML VIAL 1 MG IV (09:25)
[2024-01-06] MEDS: BUPIVACAINE 0.25% (PF) VIAL 2 ML INJ (09:30)
[2024-01-06] MEDS: DEXAMETHASONE 10 MG/ML VIAL 20 MG INJ (09:31)
[2024-01-06] MEDS: BETAMETHASONE 30 MG/5 ML MDV 12 MG INJ (09:31)
[2024-01-06] MEDS: iopamidoL 15 ML VIAL 3 ML INJ (09:31)
[2024-01-06] MEDS: MIDAZOLAM 5 MG/ML VIAL 1 MG IV (09:33)
--- NOTE | 2024-01-06 09:51 | P.PCN_ITS ---
Date/Time/Diagnoses Date of procedure: 01/06/24 Time of procedure: 09:51 Pre-procedure diagnosis: 1. FORAMINAL STENOSIS WITH LE SYMPTOMS Post-procedure diagnosis: same Procedure Notes Procedure: 1. FLUOROSCOPICALLY GUIDED CONTRAST CONTROLLED TRANSFORAMINAL EPIDURAL STEROID INJECTION - LEFT L4/5 Indications: Shira is referred by Dr. Heredia for treatment of Foraminal Stenosis with Left LE Symptoms Physician: Tyler Briones Total Fluoroscopy time (seconds): 11 Total sedation minutes: 18 Complications: none Procedure in detail & Post-procedure care: FINDINGS Foraminal Nerve Root Compression secondary to disc disease and facet hypertrophy DESCRIPTION OF PROCEDURE Following review of allergy and review of potential side effects and complications, including, but not necessarily limited to, infection, allergic reaction, local tissue breakdown, stroke, temporary or permanent nerve injury, paralysis, and possible , the patient indicated that the patient understood and agreed to proceed. An informed consent document was signed by the patient, witnessed by a nurse, and placed in the patient's chart. Additionally, other treatment options including medications, modalities, and physical therapy were reviewed with the patient. After review of previous anaesthesic history and IV conscious sedation the patient was deemed safe to proceed with today?s procedure with IV conscious sedation as ASA class II designation. Safety time-out was performed to confirm patient ID, procedure to be performed and site of procedure. IV sedation was accomplished with a combination of 2mg of Versed administered by the RN after DO order, titrated to patient comfort during the course of the procedure while the patient remained responsive to all verbal commands In the prone position following sterile prep and drape of the lumbar region, the left L4/5 posterior neuroforamen was identified fluoroscopically. The skin was anesthetized via a 25-gauge 1.5-inch needle with 1% lidocaine solution. At this point, a 25-gauge 3.5-inch spinal needle was atraumatically introduced and advanced under fluoroscopic guidance through the posterior left L4/5 neuroforamen to approximately the anterior aspect of the canal. Depth was confirmed on lateral view. Following negative aspiration, injection of approximately 1.5 cc of Isovue 200 under live fluoroscopy in the AP view confirmed excellent flow along the nerve root, into the epidural space without vascular or intrathecal uptake observed Radiological data, including multiple fluoroscopic views of the lumbosacral spine, reveal a spinal needle at the left L4/5 posterior neuroforamen. Subsequent views show flow of contrast material flowing superiorly and inferiorly along the nerve root confirming epidural flow. Subsequently, a test dose of 1.5 cc of 1% lidocaine solution was administered and patient was observed for two minutes for signs or symptoms of complications, including abdominal pain, shortness of breath, bilateral upper or lower extremity weakness, nausea and vomiting, prior to steroid injection. At this point, a total of 2cc or 10mg of dexamethasone and 6mg of betamethasone was injected without incident. The procedure tolerated the procedure well without signs or symptoms of complications prior to transfer to the recovery area continued monitoring without incident. The patient was then transferred to the recovery area where they were observed for an appropriate time after the injection. The patient reported a VAS score of 7 prior to the procedure and a post- procedure VAS of 0. POST OP INSTRUCTIONS The patient was provided a Pain Log to continue to record their response to the target-specific procedure prior to follow-up visit with their referring physician. Additionally, specific post-injection care instructions and a contact number to our office were provided if concerns arise regarding possible complications associated with the procedure are suspected.
--- NOTE | 2024-01-06 09:52 | P.PCN_ITS ---
Date/Time/Diagnoses Date of procedure: 01/06/24 Time of procedure: 09:52 Pre-procedure diagnosis: 1. FORAMINAL STENOSIS WITH LE SYMPTOMS Post-procedure diagnosis: same Procedure Notes Procedure: 1. FLUOROSCOPICALLY GUIDED CONTRAST CONTROLLED TRANSFORAMINAL EPIDURAL STEROID INJECTION - Left L5/S1 Indications: Shira is referred by Dr. Heredia for treatment of Foraminal Stenosis with Left LE Symptoms Physician: Tyler Briones Total Fluoroscopy time (seconds): 7 Total sedation minutes: 11 Complications: none Procedure in detail & Post-procedure care: FINDINGS Foraminal Nerve Root Compression secondary to disc disease and facet hypertrophy DESCRIPTION OF PROCEDURE Following review of allergy and review of potential side effects and complications, including, but not necessarily limited to, infection, allergic reaction, local tissue breakdown, stroke, temporary or permanent nerve injury, paralysis, and possible , the patient indicated that the patient understood and agreed to proceed. An informed consent document was signed by the patient, witnessed by a nurse, and placed in the patient's chart. Additionally, other treatment options including medications, modalities, and physical therapy were reviewed with the patient. After review of previous anaesthesic history and IV conscious sedation the patient was deemed safe to proceed with today?s procedure with IV conscious sedation as ASA class II designation. Safety time-out was performed to confirm patient ID, procedure to be performed and site of procedure. IV sedation was accomplished with a combination of 2mg of Versed was administered by the RN after DO order, titrated to patient comfort during the course of the procedure while the patient remained responsive to all verbal commands In the prone position following sterile prep and drape of the lumbar region, the Left L5/S1 posterior neuroforamen was identified fluoroscopically. The skin was anesthetized via a 25-gauge 1.5-inch needle with 1% lidocaine solution. At this point, a 25-gauge 3.5-inch spinal needle was atraumatically introduced and advanced under fluoroscopic guidance through the posterior Left L5/S1 neuroforamen to approximately the anterior aspect of the canal. Depth was confirmed on lateral view. Following negative aspiration, injection of approximately 1.5 cc of Isovue 200 under live fluoroscopy in the AP view confirmed excellent flow along the nerve root, into the epidural space without vascular or intrathecal uptake observed Radiological data, including multiple fluoroscopic views of the lumbosacral spine, reveal a spinal needle at the Left L5/S1 posterior neuroforamen. Subsequent views show flow of contrast material flowing superiorly and inferiorly along the nerve root confirming epidural flow. Subsequently, a test dose of 1.5 cc of 1% lidocaine solution was administered and patient was observed for two minutes for signs or symptoms of complications, including abdominal pain, shortness of breath, bilateral upper or lower extremity weakness, nausea and vomiting, prior to steroid injection. At this point, a total of 2cc or 10mg of dexamethasone and 6mg of betamethasone was injected without incident. The procedure tolerated the procedure well without signs or symptoms of complications prior to transfer to the recovery area continued monitoring without incident. The patient was then transferred to the recovery area where they were observed for an appropriate time after the injection. The patient reported a VAS score of 7 prior to the procedure and a post-procedure VAS of 0. POST OP INSTRUCTIONS The patient was provided a Pain Log to continue to record their response to the target-specific procedure prior to follow-up visit with their referring physic ajit. Additionally, specific post-injection care instructions and a contact number to our office were provided if concerns arise regarding possible complications associated with the procedure are suspected.
== END 2024-01-06 10:12 | disposition home or self-care (01) ==
LOC: RAD 08:45
PROVIDERS: Family Provider Family Medicine; PCP Family Medicine; Referring Provider Physical Medicine & Rehabilitation; Visit Provider Physical Medicine & Rehabilitation
DX: M48.061 Spinal stenosis, lumbar region without neurogenic claudication (principal); M51.16 Intervertebral disc disorders with radiculopathy, lumbar region; M47.26 Other spondylosis with radiculopathy, lumbar region
CPT/HCPCS: 64483; 99152; J0702; J1100; J2250; J3490

== ENCOUNTER 2024-02-15 08:01 | Outpatient (CLI) | payer MEDICARE, OTHER, SELFPAY ==
[2024-02-15] VITALS (11 sets, daily range): BP systolic 109–179; BP diastolic 56–77; PULSE 18–54; RESP 14–19; TEMP 36.4; O2SAT 96–100
--- NOTE | 2024-02-15 08:03 | DI.RAD.S_ITS ---
PROCEDURE: PAIN L/S TRANSFORAMINAL INJECT INDICATIONS: Left L4/5 TFESI COMPARISON: [facility], , PAIN L/S TRANSFORAMINAL INJECT, 01/06/2024, 9:31. FINDINGS/IMPRESSION: Fluoroscopic spot filming was performed to verify placement of spinal needles at the left L4-5 level(s), as labeled on the films. Appropriate location(s) of the needle tip(s) was confirmed by injection of iodinated contrast. Dictated by: Mykel Campos M.D. on 02/15/2024 at 12:25 Approved by: Mykel Campos M.D. on 02/15/2024 at 12:25
[2024-02-15] MEDS: MIDAZOLAM 2 MG/2 ML VIAL 1 MG IV ×2 (09:13→09:20)
[2024-02-15] MEDS: BUPIVACAINE 0.25% (PF) VIAL 2 ML INJ (09:18)
[2024-02-15] MEDS: methylPREDNISolone acetate 80 MG/ML VIAL INJ (09:19)
[2024-02-15] MEDS: iopamidoL 15 ML VIAL 3 ML INJ (09:19)
[2024-02-15] MEDS: BETAMETHASONE 30 MG/5 ML MDV 6 MG INJ (09:19)
[2024-02-15] MEDS: DEXAMETHASONE 10 MG/ML VIAL INJ (09:20)
--- NOTE | 2024-02-15 09:31 | P.PCN_ITS ---
Date/Time/Diagnoses Date of procedure: 02/15/24 Time of procedure: 09:31 Pre-procedure diagnosis: 1. FORAMINAL STENOSIS WITH LE SYMPTOMS Post-procedure diagnosis: same Procedure Notes Procedure: 1. FLUOROSCOPICALLY GUIDED CONTRAST CONTROLLED TRANSFORAMINAL EPIDURAL STEROID INJECTION - LEFT L4/5 Indications: Shira is referred by for treatment of Foraminal Stenosis with Left LE Symptoms Physician: Tyler Briones Total Fluoroscopy time (seconds): 9 Total sedation minutes: 14 Complications: none Procedure in detail & Post-procedure care: FINDINGS Foraminal Nerve Root Compression secondary to disc disease and facet hypertrophy DESCRIPTION OF PROCEDURE Following review of allergy and review of potential side effects and complications, including, but not necessarily limited to, infection, allergic reaction, local tissue breakdown, stroke, temporary or permanent nerve injury, paralysis, and possible , the patient indicated that the patient understood and agreed to proceed. An informed consent document was signed by the patient, witnessed by a nurse, and placed in the patient's chart. Additionally, other treatment options including medications, modalities, and physical therapy were reviewed with the patient. After review of previous anaesthesic history and IV conscious sedation the patient was deemed safe to proceed with today?s procedure with IV conscious sedation as ASA class II designation. Safety time-out was performed to confirm patient ID, procedure to be performed and site of procedure. IV sedation was accomplished with a combination of 2mg of Versed administered by the RN after DO order, titrated to patient comfort during the course of the procedure while the patient remained responsive to all verbal commands In the prone position following sterile prep and drape of the lumbar region, the left L4/5 posterior neuroforamen was identified fluoroscopically. The skin was anesthetized via a 25-gauge 1.5-inch needle with 1% lidocaine solution. At this point, a 25-gauge 3.5-inch spinal needle was atraumatically introduced and advanced under fluoroscopic guidance through the posterior left L4/5 neuroforamen to approximately the anterior aspect of the canal. Depth was confirmed on lateral view. Following negative aspiration, injection of approximately 1.5 cc of Isovue 200 under live fluoroscopy in the AP view confirmed excellent flow along the nerve root, into the epidural space without vascular or intrathecal uptake observed Radiological data, including multiple fluoroscopic views of the lumbosacral spine, reveal a spinal needle at the left L4/5 posterior neuroforamen. Subsequent views show flow of contrast material flowing superiorly and inferiorly along the nerve root confirming epidural flow. Subsequently, a test dose of 1.5 cc of 1% lidocaine solution was administered and patient was observed for two minutes for signs or symptoms of complications, including abdominal pain, shortness of breath, bilateral upper or lower extremity weakness, nausea and vomiting, prior to steroid injection. At this point, a total of 3cc or 10mg of dexamethasone, 80mg depo medrol and 6mg of betamethasone was injected without incident. The procedure tolerated the procedure well without signs or symptoms of complications prior to transfer to the recovery area continued monitoring without incident. The patient was then transferred to the recovery area where they were observed for an appropriate time after the injection. The patient reported a VAS score of 7 prior to the procedure and a post- procedure VAS of 0. POST OP INSTRUCTIONS The patient was provided a Pain Log to continue to record their response to the target-specific procedure prior to follow-up visit with their referring ph ysician. Additionally, specific post-injection care instructions and a contact number to our office were provided if concerns arise regarding possible complications associated with the procedure are suspected.
== END 2024-02-15 10:00 | disposition home or self-care (01) ==
PROVIDERS: Family Provider Family Medicine; PCP Family Medicine; Referring Provider Physical Medicine & Rehabilitation; Visit Provider Physical Medicine & Rehabilitation
DX: M48.061 Spinal stenosis, lumbar region without neurogenic claudication (principal); M51.16 Intervertebral disc disorders with radiculopathy, lumbar region; M47.26 Other spondylosis with radiculopathy, lumbar region
CPT/HCPCS: 64483; 99152; J0702; J1010; J1100; J2250; J3490